=== PATIENT | male | born 1975 | race African-American/Black ===

== ENCOUNTER 2017-10-03 17:12 | Emergency (ER) | payer OTHER ==
[2017-10-03] MEDS ORDERED: NA CHLORIDE 0.9% 1,000 ML ONE (17:23)
[2017-10-03] MEDS ORDERED: NOREPINEPHRINE 4 MG in D5W 250 ML IV PRN (17:44)
[2017-10-03] MEDS ORDERED: NA CHLORIDE 0.9% 500 ML ONE (17:55)
[2017-10-03 18:12] LABS: Arterial Blood Carboxyhemoglob 9.3 % (0-1.5); Blood Gas Oxyhemoglobin 83.2 % (94-97); Blood O2 Saturation 92.3 % (92-98.5)
[2017-10-03 18:17] LABS: Absolute Lymphocytes (CBC) 0.9 K/uL (0.7-4.9); Absolute Monocytes 0.8 K/uL (0.1-1.3); Absolute Neutrophil 12.2 K/uL (1.8-8.0); Basophils % 0.5 % (0-1.3); Hematocrit 18.1 % (39.6-49.0); Lymphocytes % 6.6 % (15.3-44.8); MCV 89.7 fL (80-100); MPV 9.2 fL (7.6-11.3); RBC Red Blood Cell Count 2.01 M/uL (4.33-5.43)
[2017-10-03] MEDS ORDERED: VANCOMYCIN/NS 1 gm 1 GM/250 ML BAG ONE ×2 (18:22→20:10)
[2017-10-03 18:27] LABS: Protime INR 1.38
[2017-10-03] MEDS ORDERED: NA CHLORIDE 0.9% 250 ML ONE (18:32)
[2017-10-03 18:37] LABS: ALT/SGPT 6 IU/L (10-60); AST/SGOT 9 IU/L (10-42); Albumin 2.2 g/dL (3.2-5.5); Alkaline Phosphatase 56 IU/L (42-121); BUN Blood Urea Nitrogen 47 mg/dL (6-20); Bicarbonate 22 mEq/L (21-31); Bilirubin Direct 0.1 mg/dL (0-0.2); Bilirubin Total 0.6 mg/dL (0.3-1.2); Creatine Phosphokinase 122 IU/L (22-269); Glucose Level 114 mg/dL (65-120); Lipase 25 U/L (22-51); Potassium 4.1 mEq/L (3.6-5.0); Protein, Total 6.7 g/dL (6.0-8.3); Sodium Level 135 mEq/L (135-145)
[2017-10-03 18:39] LABS: Anisocytosis 1+; Blood Morphology Comment NOTED (NOT SEEN); Hypochromasia 2+; Platelet Estimate DECR; Urine White Blood Cell Casts OK
[2017-10-03 18:45] LABS: Alcohol Serum/Plasma < 10 mg/dl; Salicylates Level < 4.0 mg/dl (<30)
--- NOTE | 2017-10-03 18:55 | RAD REPORT ---
EXAM DESCRIPTION: Bernard Single View10/03/2017 5:58 pm CLINICAL HISTORY: Shortness of breath COMPARISON: none FINDINGS: The lungs appear clear of acute infiltrate. The heart is normal size. Small left pleural effusion is present IMPRESSION: No acute abnormalities displayed
--- NOTE | 2017-10-03 18:55 | RAD REPORT ---
EXAM DESCRIPTION: CT - Chest Abdomen Pelvis W Cont - 10/03/2017 6:32 pm CLINICAL HISTORY: Chest and abdominal pain status post fall COMPARISON: CT chest October 15, 2016 TECHNIQUE: Computed axial tomography of the chest, abdomen and pelvis was obtained. 100 cc Isovue-30 0 was administered intravenously. Oral contrast was not requested. This limits evaluation of bowel. All CT scans are performed using dose optimization technique as appropriate and may include automated exposure control or mA/KV adjustment according to patient size. FINDINGS: 5 x 2 centimeter fluid is loculated within the left oblique fissure. An additional very sm all loculated left pleural effusion is present. A pericardial effusion is not present. Mild ground-glass opacities are present within the right upper lobe. The remainder lungs are essentia lly clear. No mediastinal or hilar lymphadenopathy is noted. The liver adrenals and pancreas appear unremarkable. The kidneys are small containing cysts. The spleen measures 14 centimeters. There is no evidence of diverticulitis. An ulceration involves the anterior subcutaneous tissues of the right pelvis. The gallbladder is distended. It probably contains small stones. The wall does not appear thickened A left femoral line is in place. Calcified thrombus is suspected within the superior vena cava and br achiocephalic vein IMPRESSION: Small amount of fluid loculated within the left oblique fissure. An additional very smal l loculated left pleural effusion is seen. Cholelithiasis with gallbladder distention. Mild ground-glass opacities within the right upper lobe indicative of a mild alveolitis
--- NOTE | 2017-10-03 19:24 | EDPHYS ---
Physician Documentation [facility] Name: Shawn Devi Age: 41 yrs Sex: Male : 1975 Arrival Date: 10/03/2017 Time: 17:23 Bed 4 Private MD: ED Physician Prudencio Moreno HPI: 10/03 17:38 This 41 yrs old Black Male presents to ER via Unassigned with complaints of siena bleedingfrom right lower abdominal wound. 17:38 The patient presents with abdominal pain in the lower abdomen, right lower quadrant. siena Onset: The symptoms/episode began/occurred at an unknown time. dialysis, bleeding heavy from abdominal ound. The patient presents with confusion, decreased mental status. Onset: The symptoms/episode began/occurred this morning, today. Possible causes: unknown. Associated signs and symptoms: Pertinent positives: abdominal pain, confusion, dizziness, lightheadedness. Associated signs and symptoms: Pertinent positives: shortness of breath. Historical: - Allergies: 18:15 No Known Allergies; dm5 - Home Meds: 18:15 calcitriol 0.5 mcg Oral cap 1 cap once daily [Active]; calcium carbonate 500 mg calcium dm5 (1,250 mg) Oral tab 500 mg four times a day [Active]; Keppra 500 mg Oral tab 1 tab daily [Active]; Renvela 800 mg Oral tab 3 tab 3 times per day [Active]; - PMHx: 18:15 Dialysis; Renal Disease; dm5 - PSHx: 18:15 grafts; dm5 - Immunization history:: Adult Immunizations up to date. - Social history:: Smoking status: unknown. - Family history:: not pertinent. ROS: 17:38 Eyes: Negative for injury, pain, redness, and discharge, ENT: Negative for injury, siena pain, and discharge, Neck: Negative for injury, pain, and swelling. 17:38 Cardiovascular: Positive for palpitations. 17:38 Respiratory: Positive for cough, shortness of breath. 17:38 Abdomen/GI: Positive for abdominal pain, of the right lower quadrant, bleeding right lower quadrant, unk wound. Exam: 17:38 Constitutional: This is a well developed, well nourished patient who is awake, alert, siena and in no acute distress. Head/Face: Normocephalic, atraumatic. Eyes: Pupils equal round and reactive to light, extra-ocular motions intact. Lids and lashes normal. Conjunctiva and sclera are non-icteric and not injected. Cornea within normal limits. Periorbital areas with no swelling, redness, or edema. ENT: Nares patent. No nasal discharge, no septal abnormalities noted. Tympanic membranes are normal and external auditory canals are clear. Oropharynx with no redness, swelling, or masses, exudates, or evidence of obstruction, uvula midline. Mucous membranes moist. Neck: Trachea midline, no thyromegaly or masses palpated, and no cervical lymphadenopathy. Supple, full range of motion without nuchal rigidity, or vertebral point tenderness. No Meningismus. Chest/axilla: Normal chest wall appearance and motion. Nontender with no deformity. No lesions are appreciated. Cardiovascular: Regular rate and rhythm with a normal S1 and S2. No gallops, murmurs, or rubs. Normal PMI, no JVD. No pulse deficits. Abdomen/GI: Soft, non-tender, with normal bowel sounds. No distension or tympany. No guarding or rebound. No evidence of tenderness throughout. Back: No spinal tenderness. No costovertebral tenderness. Full range of motion. Skin: Warm, dry with normal turgor. Normal color with no rashes, no lesions, and no evidence of cellulitis. Psych: Awake, alert, with orientation to person, place and time. Behavior, mood, and affect are within normal limits. 17:38 Respiratory: the patient does not display signs of respiratory distress, Respirations: labored breathing, that is mild, Breath sounds: decreased breath sounds, Respiratory rate: 20 17:38 Abdomen/GI: Inspection: distension, Bowel sounds: normal, Palpation: moderate abdominal tenderness, in the right lower quadrant, Liver: no appreciated palpable abnormalities, Hernia: not appreciated. Vital Signs: 17:34 BP 107 / 79; Pulse 107; Resp 18; Pulse Ox 97% on R/A; aj1 18:00 BP 103 / 89; Pulse 96; Resp 15; Temp 98.2; Pulse Ox 97% on R/A; aj1 18:30 BP 117 / 82; Pulse 100; Resp 20; Pulse Ox 97% on R/A; aj1 19:00 BP 103 / 82; Pulse 100; Resp 20; Pulse Ox 97% on R/A; aj1 19:30 BP 80 / 68; Pulse 95; Resp 13; Pulse Ox 97% on R/A; aj1 19:35 BP 93 / 66; Pulse 94; Resp 13; Temp 97.0; Pulse Ox 96% on R/A; aj1 20:00 BP 107 / 82; Pulse 88; Resp 21; Pulse Ox 96% on R/A; aj1 20:16 BP 109 / 62; Pulse 91; Resp 17 S; Pulse Ox 92% on R/A; bb 20:31 BP 60 / 25; Pulse 88; Resp 22 S; Pulse Ox 99% on 4 lpm NC; bb 21:15 BP 72 / 42; Pulse 80; Resp 18 S; Pulse Ox 92% on 4 lpm NC; bb 21:30 BP 127 / 96; Pulse 69; Resp 20 S; Temp 97.4(TE); Pulse Ox 98% on 4 lpm NC; bb 21:30 by EMS monitor bb Procedures: 19:18 Peripheral line: by aseptic technique a peripheral line was placed in the left external siena jugular vein. MDM: 17:44 Data reviewed: vital signs, nurses notes, lab test result(s), EKG, radiologic studies, [facility] CT scan, plain films. 17:51 Patient medically screened. [facility] 10/03 17:34 Order name: Basic Metabolic Panel 10/03 17:34 Order name: Blood Culture Adult (2) 10/03 17:34 Order name: CBC with Diff; Complete Time: 19:14 10/03 17:34 Order name: CPK; Complete Time: 19:14 10/03 17:34 Order name: LFT's; Complete Time: 19:14 10/03 17:34 Order name: Lipase; Complete Time: 19:14 10/03 17:34 Order name: Procalcitonin; Complete Time: 19:14 10/03 17:34 Order name: Protime (+inr); Complete Time: 18:37 10/03 17:34 Order name: Basic Metabolic Panel; Complete Time: 19:14 EDMS 10/03 17:36 Order name: Bb Add On bd 10/03 17:36 Order name: Type And Screen [facility] 10/03 17:36 Order name: ABG; Complete Time: 19:14 siena 10/03 17:38 Order name: Acetaminophen; Complete Time: 19:14 [facility] 10/03 17:34 Order name: Chest Single View XRAY; Complete Time: 19:14 10/03 17:38 Order name: ETOH Level; Complete Time: 19:14 [facility] 10/03 17:38 Order name: Ptt, Activated; Complete Time: 18:37 [facility] 10/03 17:38 Order name: Salicylate; Complete Time: 19:14 [facility] 10/03 17:56 Order name: Glucose, Ancillary Testing; Complete Time: 18:08 [facility] 10/03 18:07 Order name: Chest Abdomen Pelvis W Con CT; Complete Time: 19:14 [facility] 10/03 18:10 Order name: Packed RBC Leukored -1 EDSC 10/03 18:31 Order name: CBC Smear Scan; Complete Time: 19:14 [facility] 10/03 18:54 Order name: ABO/RH no charge; Complete Time: 19:14 [facility] 10/03 17:34 Order name: Accucheck; Complete Time: 21:00 10/03 17:34 Order name: Cardiac monitoring; Complete Time: 21:00 10/03 17:34 Order name: EKG - Nurse/Tech; Complete Time: 21:01 10/03 17:34 Order name: IV Saline Lock - Large Bore; Complete Time: 21: 10/03 17:34 Order name: Labs collected and sent; Complete Time: 21: 10/03 17:34 Order name: O2 Per Protocol; Complete Time: 21: 10/03 17:34 Order name: O2 Sat Monitoring; Complete Time: 21:01 10/03 17:34 Order name: Transfuse; Complete Time: 21:00 10/03 17:38 Order name: EKG; Complete Time: 17:38 [facility] 10/03 17:38 Order name: IV Saline Lock; Complete Time: 19:05 [facility] 10/03 19:28 Order name: CONS Physician Consult [facility] 10/03 19:28 Order name: CONS Physician Consult EDSC Administered Medications: 17:30 Drug: NS 0.9% 1000 ml Route: IV; Rate: 1 bolus; Site: left femoral; aj1 19:30 Drug: Levophed (4 mg/250 mL D5W 4 mcg/min Route: IV; Rate: calculated rate; Site: left aj1 femoral; 21:38 Follow up: IV Status: Infusion continued upon transfer bb 20:14 Drug: fentaNYL (PF) 25 mcg Route: IVP; Site: Other; bb 21:36 Follow up: Response: Pain is decreased bb 20:14 Drug: Zofran 4 mg Route: IVP; Site: Other; bb 21:37 Follow up: Response: No adverse reaction bb 20:15 Drug: vancoMYCIN 1 grams Route: IVPB; Infused Over: 2 hrs; Site: Other; bb 21:37 Follow up: IV Status: Infusion continued upon transfer bb Point of Care Testing: Blood Glucose: 17:31 Blood Glucose: 132 mg/dL; rk2 Ranges: Critical Glucose Levels:Adult <50 mg/dl or >400 mg/dl <40 mg/dl or >180 mg/dl Disposition: 10/03/17 19:50 Transfer ordered to [facility]. Diagnosis are Hypotension, End stage renal disease, Anemia, unspecified - right lower quadrant wound bleeding, Pneumonia due to other specified bacteria. - Reason for transfer: Higher level of care. - Accepting physician is to [facility]. - Condition is Fair. - Problem is new. - Symptoms have improved. Signatures: Dispatcher [employer] EDSC Amaris Obrien, RN RN aj1 Montse Bruce RN RN dm5 Cesia James, RN Prudencio Fernandez MD MD cha Ballard, Brenda, RN RN Daniel Phipps MD MD gs Corrections: (The following items were deleted from the chart) 18:02 17:51 Chest Abdomen W/ Con+CT.RAD.BRZ ordered. [facility] EDSC 18:18 18:15 Immunization history: Adult Immunizations up to date, dm5 dm5 18:26 18:02 Chest Abdomen Pelvis W Cont ordered. [facility] EDSC 19:27 19:23 Hospitalization Ordered by Taylor Lopez MD for Inpatient Admission. Preliminary diagnosis is Anemia, unspecified - abdominal wound bleeding; Hypotension; End stage renal disease. Bed requested for Intensive Care Unit. Status is Inpatient Admission. Condition is Fair. Problem is new. Symptoms have improved. UTI on Admission? No. siena 19:48 19:27 10/03/2017 19:23 Hospitalization Ordered by Taylor Lopez MD for Inpatient siena Admission. Preliminary diagnosis is Anemia, unspecified - abdominal wound bleeding; Hypotension; End stage renal disease. Bed requested for Intensive Care Unit. Status is Inpatient Admission. Condition is Fair. Problem is new. Symptoms have improved. UTI on Admission? No. dw 22:04 19:50 10/03/2017 19:50 Transfer ordered to [facility]. bb Diagnosis is Hypotension; End stage renal disease; Anemia, unspecified - right lower quadrant wound bleeding; Pneumonia due to other specified bacteria. Reason for transfer: Higher level of care. Accepting physician is to [facility]. Condition is Fair. Problem is new. Symptoms have improved. siena
--- NOTE | 2017-10-03 19:24 | ER ---
Nurse's Notes [facility] Name: Shawn Devi Age: 41 yrs Sex: Male : 1975 Arrival Date: 10/03/2017 Time: 17:23 Bed 4 Private MD: Diagnosis: Hypotension;End stage renal disease;Anemia, unspecified-right lower quadrant wound bleeding;Pneumonia due to other specified bacteria Presentation: 10/03 17:12 Presenting complaint: EMS states: pt was watching TV and felt a warm sensation in his dm5 lap, he realized he was bleeding from a wound. Pt has a wound of unknown origin on LLQ. Pt also reports having wounds on legs. Pt is a dialysis patient. EMS unable to obtain blood pressure. Transition of care: patient was not received from another setting of care. Onset of symptoms was October 03, 2017 at 16:45. Initial Sepsis Screen: Does the patient meet any 2 criteria? Systolic BP < 90 mmHg. Altered Mental Status. Yes Does the patient have a suspected source of infection? Yes: Skin breakdown/wound. Care prior to arrival: None. 17:12 Method Of Arrival: EMS: [facility] 5 17:12 Acuity: REGINA 1 dm5 Triage Assessment: 17:12 General: Appears distressed, obese, unkempt, Behavior is drowsy. Pain: Complains of dm5 pain in right lower quadrant. Neuro: Level of Consciousness is lethargic, Oriented to person, place, time, Lockstitch Binder are weak bilaterally Weakness Speech is slurred. 17:12 Cardiovascular: Capillary refill is > 3 seconds Patient's skin is warm and dry. dm5 Respiratory: Airway is patent Respiratory effort is even, unlabored. Derm: Skin is dry, Skin is pale, Wound noted right lower quadrant. Historical: - Allergies: 18:15 No Known Allergies; dm5 - Home Meds: 18:15 calcitriol 0.5 mcg Oral cap 1 cap once daily [Active]; calcium carbonate 500 mg calcium dm5 (1,250 mg) Oral tab 500 mg four times a day [Active]; Keppra 500 mg Oral tab 1 tab daily [Active]; Renvela 800 mg Oral tab 3 tab 3 times per day [Active]; - PMHx: 18:15 Dialysis; Renal Disease; dm5 - PSHx: 18:15 grafts; dm5 - Immunization history:: Adult Immunizations up to date. - Social history:: Smoking status: unknown. - Family history:: not pertinent. Screenin:30 Abuse screen: Denies threats or abuse. Denies injuries from another. Nutritional aj1 screening: No deficits noted. Tuberculosis screening: No symptoms or risk factors identified. 21:55 Fall Risk None identified. bb Assessment: 17:30 Reassessment: Patient moved to trauma room 4. Report received from KARLA Grant. aj1 17:30 General: Appears uncomfortable, Behavior is drowsy, listless. Pain: Complains of pain aj1 in abdomen, right leg and left leg Pain does not radiate. Pain currently is 10 out of 10 on a pain scale. Quality of pain is described as sharp, Pain began suddenly, Is continuous. Neuro: Level of Consciousness is confused, listless, Oriented to person, place, time, situation, Weakness in bilateral arm(s) leg(s) Patient is unable to lift his arms to sign or legs due to weakness. Speech slow, soft. Facial symmetry appears normal, Pupils are PERRLA, Reports dizziness. Cardiovascular: Reports lightheadedness, palpitations, shortness of breath, Heart tones S1 S2 present Capillary refill < 3 seconds in bilateral fingers Pulses are palpable in right radial artery and left radial artery Rhythm is sinus tachycardia Chest pain is denied. Respiratory: Reports shortness of breath Airway is patent Respiratory effort is even, unlabored, Respiratory pattern is regular, symmetrical, Breath sounds are clear bilaterally. GI: Abdomen is round non-distended, Bowel sounds present X 4 quads. Abd is soft X 4 quads Abdomen is tender to palpation in right lower quadrant Patient currently denies diarrhea, nausea, vomiting. : No signs and/or symptoms were reported regarding the genitourinary system. EENT: No signs and/or symptoms were reported regarding the EENT system. Derm: Skin is pale, Wound noted right lower quadrant Wound is bleeding moderately. Pressure applied to wound. Patient states that he does not know how he got that wound, but he has been having it treated at the wound healing center. Blood noted on Sagar drsg located on the patient's left groin. Large drsg noted to patient's left leg. Patient states that he had a surgery to remove blood clots in his legs and that why that drsg is there. No blood noted to drsg on patient's left leg. Patient has 2 suture noted to the right groin, patient is unsure of when those were placed or why. Musculoskeletal: Capillary refill < 3 seconds. 17:45 Reassessment: Order received from Dr. Moreno to hold Levophed. aj1 17:50 Reassessment: Blood pressure readings vary widely from one cycle to the next. Patient's aj1 family states that they always have trouble getting an accurate blood pressure on him and the values always vary widely from one cycle to the next because of all the shunts he has in his body. Notified Dr. Moreno of difficulty getting consistent blood pressures and patient's history of difficult blood pressures. 18:00 Reassessment: 1st unit of blood started, by myself, and verified by KARLA Kessler. Order aj received to hold second unit until hemoglobin results come back. 18:05 Reassessment: Dr. Kimball at bedside to evaluate patient. aj1 18:10 Reassessment: wet to dry drsg placed on abdominal wound per orders from Dr. Kimball. aj1 18:15 Reassessment: Patient transported to CT accompanied by Milka Obrien RN. aj1 18:25 Reassessment: Vancomycin pulled to be administered when pt returned from CT. Dr. rolan Moreno ordered second unit of blood to be started when it gets to the ED. Vancomycin administration delayed due to blood administration and lack of vascular access. One unit of blood is infusing through Sagar catheter and the other will be started in EJ. 18:30 Reassessment: Patient appears in no apparent distress at this time. No changes from aj1 previously documented assessment. Patient and/or family updated on plan of care and expected duration. Pain level reassessed. Patient complains of continued pain in his legs. Patient remains drowsy and listless, patient opens his eyes to verbal stimuli, when patient is not being stimulated his eyes remain closed. Patient complains of being cold, multiple warm blankets placed on patient to keep him warm. Drsg to patient's abd remains dry and intact. 18:30 Cardiovascular: Patient's skin is warm and dry. Rhythm is sinus tachycardia. aj1 18:30 Respiratory: Airway is patent Respiratory effort is even, unlabored, Respiratory aj1 pattern is regular, symmetrical. 18:35 Reassessment: Patient's family at bedside, they are upset that patient has not received aj1 pain medication for the pain in his legs. Explained to patient and family that since he was so drowsy and we were having a hard time getting an accurate blood pressure it was not safe to give him pain medication. Family remains irritated at this, begin demanding pain medication. Notified Dr. Moreno of patient's family concerns, Dr Moreno to see patient. 18:40 Reassessment: Order received to start 2nd unit of blood, 2nd unit of blood started by aj1 myself and verified by Mel RN, ER nurse international project manager. 19:00 Reassessment: Patient continues to complain of feeling very cold, patient's temperature aj1 has dropped from 98.2 to 97.0 since arrival to ER. Kaylan hugger placed on patient to maintain body warmth, will continue to monitor patient's temperature. 19:25 Reassessment: Per Josh both units of blood infused through same site so that dm5 Levophed could be infused through Sagar Cath. 19:30 Reassessment: Order received to start Levophed and titrate to keep SBP above 90. aj1 19:30 Reassessment: Patient appears in no apparent distress at this time. No changes from aj1 previously documented assessment. Patient and/or family updated on plan of care and expected duration. Pain level reassessed. Patient remains drowsy, but is answering questions more completely. Patient complains of continued pain in his legs. Notified Dr. Moreno of patient complaint. Cardiovascular: Heart tones S1 S2 present Patient's skin is warm and dry. Rhythm is sinus tachycardia. Respiratory: Airway is patent Respiratory effort is even, unlabored, Respiratory pattern is regular, symmetrical. Derm: drsg to patient's abdomen remains dry and intact. 20:00 Reassessment: pt is lying on stretcher, listless, c/o pain to legs, IV to L EJ intact bb with blood infusing, Sagar catheter to L femoral accessed with Levophed runninng, wound to abdomen with dressing clean, dry, intact, no active bleeding noted, family at bedside, Dr Moreno notified pt c/o pain to bilateral lower legs new orders received pt medicated see AUG. 20:30 Reassessment: pt appears to be sleeping O2 sats decreased pt placed on NC at 4 Lpm O2 bb sats increased pt states he is feeling better. 20:40 Reassessment: report called to Amaris Allen RN at [facility] ICU MOT signed by bb grandmother. 21:00 Reassessment: pt resting quietly, IV sites intact, patent, blood products infusing, pt bb states he is feeling better, family at bedside. 21:15 Reassessment: [facility] at bedside for transfer of pt, pt A\T\O x 4, resp unlabored, IV bb sites intact, patent, blood products completed, pt transferred to trihealther with no difficulty, VS stable. Vital Signs: 17:34 BP 107 / 79; Pulse 107; Resp 18; Pulse Ox 97% on R/A; aj1 18:00 BP 103 / 89; Pulse 96; Resp 15; Temp 98.2; Pulse Ox 97% on R/A; aj1 18:30 BP 117 / 82; Pulse 100; Resp 20; Pulse Ox 97% on R/A; aj1 19:00 BP 103 / 82; Pulse 100; Resp 20; Pulse Ox 97% on R/A; aj1 19:30 BP 80 / 68; Pulse 95; Resp 13; Pulse Ox 97% on R/A; aj1 19:35 BP 93 / 66; Pulse 94; Resp 13; Temp 97.0; Pulse Ox 96% on R/A; aj1 20:00 BP 107 / 82; Pulse 88; Resp 21; Pulse Ox 96% on R/A; aj1 20:16 BP 109 / 62; Pulse 91; Resp 17 S; Pulse Ox 92% on R/A; bb 20:31 BP 60 / 25; Pulse 88; Resp 22 S; Pulse Ox 99% on 4 lpm NC; bb 21:15 BP 72 / 42; Pulse 80; Resp 18 S; Pulse Ox 92% on 4 lpm NC; bb 21:30 BP 127 / 96; Pulse 69; Resp 20 S; Temp 97.4(TE); Pulse Ox 98% on 4 lpm NC; bb 21:30 by EMS monitor lucy ED Course: 17:15 Missed attempt(s): 18 gauge in right hand. Bleeding controlled, band aid applied, dm5 catheter tip intact. 17:20 Accessed Sagar cath. Per Dr. Moreno dressing saturated with blood at this time. dm5 Good blood return. Flushes easily. initial labs drawn from this site. 17:23 Patient arrived in ED. dm5 17:30 No provider procedures requiring assistance completed. aj1 17:30 Report received from KARLA Grant. aj1 17:30 Patient has correct armband on for positive identification. Bed in low position. Call aj1 light in reach. Side rails up X 1. credit administration officer on. Pulse ox on. NIBP on. One-on-one care X 120 minutes. 17:35 Prudencio Moreno MD is Attending Physician. siena 17:54 Radiology exam delayed due to lab results not completed at this time. (BUN/Creatinine). sj 17:54 EKG done, by radio technician. reviewed by Prudencio Moreno MD. at1 17:55 X-ray completed. Portable x-ray completed in exam room. Patient tolerated procedure kc2 well. 17:56 Chest Single View XRAY In Process Unspecified. EDMS 18:13 Triage completed. dm5 18:19 Arm band placed on right wrist. Patient placed in an exam room, on a stretcher, on dm5 payroll administrative assistant, on pulse oximetry, Patient MD notified. 18:32 Chest Abdomen Pelvis W Con CT In Process Unspecified. EDIN 19:19 Taylor Lopez MD is Hospitalizing Provider. [facility] 19:57 Amaris Obrien RN is Primary Nurse. aj1 20:00 Report given to KARLA Marino. aj1 21:55 Patient transferred, IV remains in place. bb Administered Medications: 17:30 Drug: NS 0.9% 1000 ml Route: IV; Rate: 1 bolus; Site: left femoral; aj1 19:30 Drug: Levophed (4 mg/250 mL D5W 4 mcg/min Route: IV; Rate: calculated rate; Site: left aj1 femoral; 21:38 Follow up: IV Status: Infusion continued upon transfer bb 20:14 Drug: fentaNYL (PF) 25 mcg Route: IVP; Site: Other; bb 21:36 Follow up: Response: Pain is decreased bb 20:14 Drug: Zofran 4 mg Route: IVP; Site: Other; bb 21:37 Follow up: Response: No adverse reaction bb 20:15 Drug: vancoMYCIN 1 grams Route: IVPB; Infused Over: 2 hrs; Site: Other; bb 21:37 Follow up: IV Status: Infusion continued upon transfer bb Point of Care Testing: Blood Glucose: 17:31 Blood Glucose: 132 mg/dL; rk2 Ranges: Outcome: 19:23 Decision to Hospitalize by Provider. siena 19:30 Instructed on the need for transfer. bb 19:50 ER care complete, transfer ordered by . siena 21:25 Transferred by ground EMS to [facility], Transfer form completed. X-rays sent bb w/ patient. 21:55 Condition: improved bb 22:04 Patient left the ED. bb Addendum: 10/09/2017 08:59 Addendum: Culture Results: Positive urine culture. Phone call Attempt #1 transferring s s facility notified. ATTN 3 Dany fax number [phone]. Signatures: Dispatcher [employer] EDMS Amaris Obrien RN RN aj1 Montse Bruce, RN RN Prudencio Catalan MD MD cha Jones, Jamila Godoy RN RN bb Smirch, Shelby, RN RN ss Donna talavera, conveyor belt operator EKG Tat1 Mimi Bartlett kc2 Juanita Ornelas, RN RN rk2 Corrections: (The following items were deleted from the chart) 10/03 18:18 18:15 Immunization history: Adult Immunizations up to date, dm5 dm5 20:16 20:15 Report received from KARLA Grant aj1 aj1 20:55 19:30 Reassessment: Order received to start Levophed and titrate to keep SBP above 90 aj1 aj1 20:56 18:30 Reassessment: Patient appears in no apparent distress at this time. No changes aj1 from previously documented assessment. Patient and/or family updated on plan of care and expected duration. Pain level reassessed. Patient is alert, oriented x 3, equal unlabored respirations, skin warm/dry/pink. Patient complains of continued pain in his legs. Patient remains drowsy and listless, patient opens his eyes to verbal stimuli, when patient is not being stimulated his eyes remain closed. Patient complains of being cold, multiple warm blankets placed on patient to keep him warm aj1 20:57 18:30 Reassessment: Patient appears in no apparent distress at this time. No changes aj1 from previously documented assessment. Patient and/or family updated on plan of care and expected duration. Pain level reassessed. Patient is alert, oriented x 3, equal unlabored respirations, skin warm/dry/pink. Patient complains of continued pain in his legs. Patient remains drowsy and listless, patient opens his eyes to verbal stimuli, when patient is not being stimulated his eyes remain closed. Patient complains of being cold, multiple warm blankets placed on patient to keep him warm. Drsg to patient's abd remains dry and intact aj1 10/04 10:47 10/03 17:30 Neuro: Level of Consciousness is confused, listless, Oriented to person, aj1 place, time, situation, Full function in bilateral arm(s) leg(s) Patient is unable to lift his arms to sign or legs due to weakness. Speech slow, soft. Facial symmetry appears normal, Pupils are PERRLA, Reports dizziness, aj1
[2017-10-03] MEDS ORDERED: ONDANSETRON 4 MG/2 ML VIAL ONE (19:56)
[2017-10-03] MEDS ORDERED: FENTANYL CITR 100 MCG/2 ML ONE (19:56)
[2017-10-03 22:24] VITALS: BP 127/96; TEMP 97.4; O2SAT 98
--- NOTE | 2017-10-04 14:39 | EKG ---
Test Date: 2017-10-03 Test Time: 17:45:03 Logging Worker: LEONILA MEASUREMENT RESULTS: Intervals: Rate: 97 WA: 120 QRSD: 78 QT: 398 QTc: 505 [place]: P: 69 WA: 120 QRS: 41 T: 36 INTERPRETIVE STATEMENTS: Normal sinus rhythm Nonspecific T wave abnormality Prolonged QT Abnormal ECG Compared to ECG 08/24/2016 08:58:26 T-wave abnormality now present Prolonged QT interval now present Sinus tachycardia no longer present Electronically Signed On 10-04-17 14:34:34 CDT by Zen Veras
== END 2017-10-03 22:04 | disposition short-term general hospital (02) ==
LOC: ER 17:12 → UNDOADMIN 19:24 → ERHOLD 19:24
PROC: 05HQ33Z Insertion of Infusion Device into Left External Jugular Vein, Percutaneous Approach (ICD-10-PCS; principal; 2017-10-03)
PROC: 30233N1 Transfusion of Nonautologous Red Blood Cells into Peripheral Vein, Percutaneous Approach (ICD-10-PCS; 2017-10-03)
DX: D64.9 Anemia, unspecified (principal); I95.9 Hypotension, unspecified; J15.8 Pneumonia due to other specified bacteria; S31.103A Unspecified open wound of abdominal wall, right lower quadrant without penetration into peritoneal cavity, initial encounter; N18.6 End stage renal disease; Z99.2 Dependence on renal dialysis
CPT/HCPCS: 36415; 71045; 71260; 74177; 80048; 80076; 80320; 80329; 82550; 82805; 82962; 83690; 84145; 85025; 85610; 85730; 86850; 86900; 86901; 87040; 87077; 87186; 87205; 93005; 99291; 99292; J2405; J3010; J3370; J7030; J7060; P9016; Q9967

== ENCOUNTER 2018-07-29 12:04 | Emergency (ER) | payer OTHER ==
[2018-07-29] MEDS ORDERED: CEFEPIME/SWI 2gm 2 GM/20 ML SYR IV ONE (13:00)
[2018-07-29 13:03] LABS: Absolute Lymphocytes (CBC) 0.6 K/uL (0.7-4.9); Absolute Monocytes 0.7 K/uL (0.1-1.3); Absolute Neutrophil 11.6 K/uL (1.8-8.0); Basophils % 0.5 % (0-1.3); Eosinophils % 1.3 % (0-4.4); Lymphocytes % 4.6 % (15.3-44.8); MPV 7.9 fL (7.6-11.3); Monocytes % 5.4 % (3.3-12.3); RBC Red Blood Cell Count 2.99 M/uL (4.33-5.43)
[2018-07-29] MEDS ORDERED: NA CHLORIDE 0.9% 1,000 ML ONE (13:04)
[2018-07-29 13:05] LABS: Protime INR 1.53
[2018-07-29] MEDS ORDERED: VANCOMYCIN/NS 1 gm 1 GM/250 ML BAG IVPB ONE (13:15)
--- NOTE | 2018-07-29 13:42 | EDPHYS ---
Physician Documentation [facility] Name: Shawn Devi Age: 42 yrs Sex: Male : 1975 Arrival Date: 07/29/2018 Time: 12:10 Bed 4 Private MD: ED Physician Prudencio Moreno HPI: 07/29 12:44 This 42 yrs old Black Male presents to ER via EMS with complaints of Leg Pain. siena 12:44 The patient presents with decreased range of motion, a deformity, an injury, pain. The siena complaints affect the medial aspect of left thigh, medial aspect of left knee, medial aspect of left calf, left quadriceps, left knee and left brown. Context: The problem was sustained. Onset: The symptoms/episode began/occurred 2 day(s) ago. Modifying factors: The symptoms are alleviated by nothing. the symptoms are aggravated by nothing. Associated signs and symptoms: Pertinent positives: swelling, warmth, weakness. Historical: - Allergies: 12:17 No Known Allergies; ch - Home Meds: 12:17 calcitriol 0.5 mcg Oral cap 1 cap once daily [Active]; calcium carbonate 500 mg calcium ch (1,250 mg) Oral tab 500 mg four times a day [Active]; Keppra 500 mg Oral tab 1 tab daily [Active]; Renvela 800 mg Oral tab 3 tab 3 times per day [Active]; - PMHx: 12:17 Dialysis; Renal Disease; Hypertension; mulptiple wounds; ch 13:17 DVT- with sx to remove; ch - PSHx: 12:17 grafts; mark in groin for dialysis; daily arm fistulas; kidney transplant failed; skin ch grafts/chronic infection; - Immunization history:: Adult Immunizations unknown. - Social history:: Smoking status: Patient/guardian denies using tobacco, Patient/guardian denies using alcohol, street drugs. - Ebola Screening: : Patient negative for fever greater than or equal to 101.5 degrees Fahrenheit, and additional compatible Ebola Virus Disease symptoms Patient denies exposure to infectious person Patient denies travel to an Ebola-affected area in the 21 days before illness onset No symptoms or risks identified at this time. ROS: 12:45 Eyes: Negative for injury, pain, redness, and discharge, ENT: Negative for injury, siena pain, and discharge, Neck: Negative for injury, pain, and swelling, Abdomen/GI: Negative for abdominal pain, nausea, vomiting, diarrhea, and constipation, Back: Negative for injury and pain, : Negative for injury, bleeding, discharge, and swelling, Psych: Negative for depression, anxiety, suicide ideation, homicidal ideation, and hallucinations, Allergy/Immunology: Negative for hives, rash, and allergies, Endocrine: Negative for neck swelling, polydipsia, polyuria, polyphagia, and marked weight changes, Hematologic/Lymphatic: Negative for swollen nodes, abnormal bleeding, and unusual bruising. 12:45 Constitutional: Positive for fever. 12:45 Cardiovascular: Positive for palpitations. 12:45 Respiratory: Positive for cough, shortness of breath. 12:45 MS/extremity: Positive for decreased range of motion, pain, swelling, tenderness, warmth, of the right leg. Exam: 12:45 Head/Face: Normocephalic, atraumatic. Eyes: Pupils equal round and reactive to light, siena extra-ocular motions intact. Lids and lashes normal. Conjunctiva and sclera are non-icteric and not injected. Cornea within normal limits. Periorbital areas with no swelling, redness, or edema. ENT: Nares patent. No nasal discharge, no septal abnormalities noted. Tympanic membranes are normal and external auditory canals are clear. Oropharynx with no redness, swelling, or masses, exudates, or evidence of obstruction, uvula midline. Mucous membranes moist. Neck: Trachea midline, no thyromegaly or masses palpated, and no cervical lymphadenopathy. Supple, full range of motion without nuchal rigidity, or vertebral point tenderness. No Meningismus. Chest/axilla: Normal chest wall appearance and motion. Nontender with no deformity. No lesions are appreciated. Cardiovascular: Regular rate and rhythm with a normal S1 and S2. No gallops, murmurs, or rubs. Normal PMI, no JVD. No pulse deficits. Respiratory: Lungs have equal breath sounds bilaterally, clear to auscultation and percussion. No rales, rhonchi or wheezes noted. No increased work of breathing, no retractions or nasal flaring. Abdomen/GI: Soft, non-tender, with normal bowel sounds. No distension or tympany. No guarding or rebound. No evidence of tenderness throughout. Male : Normal genitalia with no discharge or lesions. Skin: Warm, dry with normal turgor. Normal color with no rashes, no lesions, and no evidence of cellulitis. 12:45 Constitutional: The patient appears in obvious distress, mildly distressed, moderately distressed. 12:45 Musculoskeletal/extremity: Extremities: decreased ROM, deformity, erythema, pain, swelling, tenderness, ROM: limited active range of motion, limited passive range of motion, Circulation is intact in all extremities. Compartment Syndrome exam of affected extremity: is normal. Weight bearing: is unable to bear weight. Vital Signs: 13:11 Pulse 88; Resp 19; Temp 97.7; Pulse Ox 95% on R/A; Weight 81.65 kg; aj1 13:13 ch 14:00 BP 77 / 34; Pulse 82; Resp 14; Pulse Ox 99% on R/A; Pain 8/10; ch 14:30 BP 76 / 58; Pulse 86; Resp 12; Temp 98.6; Pulse Ox 95% on R/A; Pain 0/10; ch 15:08 BP 66 / 35; Pulse 84; Resp 14; Temp 98.2; Pulse Ox 96% on R/A; Pain 6/10; ch 15:29 BP 97 / 46; Pulse 107; Resp 11; Pulse Ox 96% on R/A; ch 15:37 BP 93 / 70; Pulse 104; Resp 18; Temp 97.8; Pulse Ox 99% on R/A; Pain 0/10; ch 15:48 BP 94 / 79; Pulse 107; Resp 14; Pulse Ox 98% on R/A; Pain 0/10; ch 16:00 BP 92 / 68; Pulse 106; Resp 19; Temp 98.1; Pulse Ox 98% on R/A; Pain 6/10; ch 13:13 unable to get accurat bp on pt due to having to use R calf only. pt has strong pedal ch pulses 15:37 pt is alseepa tthis time, reponds to verbal stimuli. pt levophed is running at 5mcg per ch min, or 18.8mL per hour. pt bp holding at 90's over 60-70s. Procedures: 12:49 Peripheral line: by aseptic technique a peripheral line was placed in the right [facility] external jugular vein. MDM: 12:32 Patient medically screened. [facility] 12:48 Data reviewed: vital signs, nurses notes, lab test result(s), EKG, radiologic studies, [facility] plain films. 07/29 12:44 Order name: Basic Metabolic Panel [facility] 07/29 12:44 Order name: CBC with Diff; Complete Time: 14:18 [facility] 07/29 12:44 Order name: PT-INR; Complete Time: 13:35 [facility] 07/29 12:44 Order name: Blood Culture Adult (2) [facility] 07/29 12:44 Order name: Procalcitonin [facility] 07/29 12:44 Order name: Lactate; Complete Time: 13:35 [facility] 07/29 13:14 Order name: CBC Smear Scan; Complete Time: 14:18 [facility] 07/29 12:44 Order name: XRAY Chest (1 view); Complete Time: 14:18 [facility] 07/29 13:37 Order name: Basic Metabolic Panel; Complete Time: 14:46 [facility] 07/29 13:37 Order name: Liver (Hepatic) Function; Complete Time: 14:46 [facility] 07/29 13:37 Order name: Troponin (Emerg Dept Use Only); Complete Time: 14:46 [facility] 07/29 13:37 Order name: NT PRO-BNP; Complete Time: 14:46 [facility] 07/29 13:37 Order name: Magnesium; Complete Time: 14:46 [facility] 07/29 13:37 Order name: Lipase; Complete Time: 14:46 [facility] 07/29 12:44 Order name: EKG; Complete Time: 12:45 [facility] 07/29 12:44 Order name: Cardiac monitoring; Complete Time: 13:10 [facility] 07/29 12:44 Order name: EKG - Nurse/Tech; Complete Time: 12:56 [facility] 07/29 12:44 Order name: IV Saline Lock; Complete Time: 13:10 [facility] 07/29 12:44 Order name: Labs collected and sent; Complete Time: 13:10 [facility] 07/29 12:44 Order name: O2 Per Protocol; Complete Time: 13:10 [facility] 07/29 12:44 Order name: O2 Sat Monitoring; Complete Time: 13:10 [facility] Administered Medications: 13:08 Drug: NS 0.9% 250 ml Route: IV; Rate: bolus; Site: Other; aj1 14:00 Follow up: IV Status: Completed infusion; IV Intake: 250ml 13:09 Drug: NS 0.9% 1000 ml Route: IV; Rate: 75 ml/hr; Site: Other; aj1 16:12 Follow up: IV Status: Infusion continued upon transfer; IV Intake: 150ml ch 13:25 Drug: Cefepime 2 grams {Note: Given SIVP in 10mL per pharmacy protocol.} Route: IVPB; aj1 Rate: 200 ml/hr; Infused Over: 30 mins; Site: Other; 13:35 Follow up: IV Status: Completed infusion; IV Intake: 10ml aj1 13:34 Drug: vancoMYCIN 1 grams Route: IVPB; Infused Over: 2 hrs; Site: Other; aj1 16:13 Follow up: IV Status: Infusion continued upon transfer; Infusion continued upon transfer, pt vancomycin has been running in at 75 mL per hour due to concern for fluid overload; IV Intake: 200ml 14:22 Drug: Albuterol - atroVENT (3:1) (2.5 mg - 0.5 mg) 3 ml Route: Nebulizer; ch 16:11 Follow up: Response: No adverse reaction ch 14:23 Drug: D50W 50 ml Route: IVP; Site: right jugular; ch 15:40 Follow up: Response: No adverse reaction; Marked relief of symptoms ch 14:33 Drug: Insulin Regular Human 10 units {Co-Signature: aj1 (Amaris Obrien RN).} Route: ch IVP; Site: right jugular; 15:40 Follow up: Response: No adverse reaction ch 14:38 Drug: Sodium Bicarbonate 1 amp Route: IVP; Site: right jugular; ch 16:10 Follow up: Response: No adverse reaction ch 14:40 Drug: Calcium Gluconate 1 grams Route: IVPB; Infused Over: 20 mins; Site: right jugular;ch 15:39 Follow up: IV Status: Completed infusion; IV Intake: 100ml ch 15:20 Drug: Levophed (4 mg/250 mL D5W 4 mcg/min {Note: mix of medications witnessed by Joann Schumacher} Route: IV; Rate: calculated rate; Site: left femoral; 15:29 Follow up: BP 97 / 46; Pulse 107 bpm; Resp 11 bpm; Pulse Ox 96% RA ch 16:10 Follow up: IV Status: Infusion continued upon transfer; IV Intake: 18ml ch 15:30 Drug: Calcium Gluconate 1 grams Route: IVPB; Infused Over: 20 mins; Site: right jugular;ch 16:11 Follow up: IV Status: Completed infusion; IV Intake: 100ml 15:30 Drug: Kayexalate 60 grams Route: PO; 16:11 Follow up: Response: No adverse reaction Disposition: 07/29/18 13:41 Transfer ordered to Other Acute Care Facility. Diagnosis are Weakness, End stage renal disease, Anemia, unspecified, Cellulitis and acute lymphangitis of other parts of limb - wound, Hypotension, Hyperkalemia. - Reason for transfer: Higher level of care. - Accepting physician is to [facility] , icu. - Condition is Fair. - Problem is new. - Symptoms have improved. Signatures: Dispatcher [employer] EDMS Sena Knox RN RN ch Johnson, Angela, RN RN aj1 Prudencio Moreno MD MD cha Angela Johnson RN aj1 Corrections: (The following items were deleted from the chart) 13:36 12:44 Basic Metabolic Panel ordered. EDNC EDMS 13:36 12:45 HEPATIC FUNCTION+C.LAB.BRZ ordered. EDNC EDMS 13:36 12:45 MAGNESIUM+C.LAB.BRZ ordered. EDNC EDMS 13:36 12:45 PROBNP+C.LAB.BRZ ordered. EDNC EDMS 13:36 12:45 TROPONIN (EMERG DEPT USE ONLY)+C.LAB.BRZ ordered. EDNC EDMS 13:36 12:45 LIPASE+C.LAB.BRZ ordered. EDNC EDMS 13:41 13:41 07/29/2018 13:41 Transfer ordered to Other Acute Care Facility. Diagnosis is siena Weakness; End stage renal disease; Anemia, unspecified; Cellulitis and acute lymphangitis of other parts of limb - wound; Hypotension. Reason for transfer: Higher level of care. Accepting physician is to [facility] , icu. Condition is Stable. Problem is new. Symptoms have improved. [facility] 14:50 13:41 07/29/2018 13:41 Transfer ordered to Other Acute Care Facility. Diagnosis is siena Weakness; End stage renal disease; Anemia, unspecified; Cellulitis and acute lymphangitis of other parts of limb - wound; Hypotension. Reason for transfer: Higher level of care. Accepting physician is to [facility] , icu. Condition is Fair. Problem is new. Symptoms have improved. [facility] 16:14 12:44 Urine Dipstick-Ancillary ordered. [facility] 16:14 14:50 07/29/2018 13:41 Transfer ordered to Other Acute Care Facility. Diagnosis is ch Weakness; End stage renal disease; Anemia, unspecified; Cellulitis and acute lymphangitis of other parts of limb - wound; Hypotension; Hyperkalemia. Reason for transfer: Higher level of care. Accepting physician is to [facility] , icu. Condition is Fair. Problem is new. Symptoms have improved. siena
--- NOTE | 2018-07-29 13:42 | ER ---
Nurse's Notes [facility] Name: Shawn Devi Age: 42 yrs Sex: Male : 1975 Arrival Date: 07/29/2018 Time: 12:10 Bed 4 Private MD: Diagnosis: Weakness;End stage renal disease;Anemia, unspecified;Cellulitis and acute lymphangitis of other parts of limb-wound;Hypotension;Hyperkalemia Presentation: 07/29 12:11 Presenting complaint: Patient states: pain to L leg, failed skin graft, fell last week, ch missed dialysis x2, missed dialysis today due to pain. pt has been drowsy since missing dialysis. pt last ate 0900 yesterday. pt supposed ot have sx on L leg for skin graft that is chronically infected on Tuesday, but only if he had dialysis. Transition of care: patient was not received from another setting of care. Onset of symptoms was July 2017. Risk Assessment: Do you want to hurt yourself or someone else? Patient reports no desire to harm self or others. Care prior to arrival: None. 12:11 Method Of Arrival: [facility] 12:11 Acuity: REGINA 2 12:30 Initial Sepsis Screen: Does the patient meet any 2 criteria? No. Patient's initial sepsis screen is negative. Does the patient have a suspected source of infection? Yes: Skin breakdown/wound. Triage Assessment: 12:17 General: Appears in no apparent distress. uncomfortable, Behavior is cooperative, ch appropriate for age, anxious, fussy, restless. Pain: Complains of pain in left leg Pain currently is 10 out of 10 on a pain scale. Neuro: Level of Consciousness is awake, obeys commands, lethargic, listless, Oriented to person, place, time, Migration Agent are equal bilaterally weak bilaterally Weakness in bilateral arm(s) leg(s) Speech is slurred, Facial symmetry appears normal, Facial symmetry: tongue is midline, Pupils are PERRLA, sluggish. Respiratory: Airway is patent Respiratory effort is even, unlabored. Derm:. Historical: - Allergies: 12:17 No Known Allergies; ch - Home Meds: 12:17 calcitriol 0.5 mcg Oral cap 1 cap once daily [Active]; calcium carbonate 500 mg calcium ch (1,250 mg) Oral tab 500 mg four times a day [Active]; Keppra 500 mg Oral tab 1 tab daily [Active]; Renvela 800 mg Oral tab 3 tab 3 times per day [Active]; - PMHx: 12:17 Dialysis; Renal Disease; Hypertension; mulptiple wounds; ch 13:17 DVT- with sx to remove; ch - PSHx: 12:17 grafts; mark in groin for dialysis; daliy arm fistulas; kidney transplant failed; skin ch grafts/chronic infection; - Immunization history:: Adult Immunizations unknown. - Social history:: Smoking status: Patient/guardian denies using tobacco, Patient/guardian denies using alcohol, street drugs. - Ebola Screening: : Patient negative for fever greater than or equal to 101.5 degrees Fahrenheit, and additional compatible Ebola Virus Disease symptoms Patient denies exposure to infectious person Patient denies travel to an Ebola-affected area in the 21 days before illness onset No symptoms or risks identified at this time. Screenin:40 Abuse screen: Denies threats or abuse. Denies injuries from another. Nutritional ch screening: No deficits noted. Tuberculosis screening: No symptoms or risk factors identified. Fall Risk Fall in past 12 months (25 points). Secondary diagnosis (15 points) IV access (20 points). Ambulatory Aid- None/Bed Rest/Nurse Assist (0 pts). Gait- Weak (10 pts.). Mental Status- Oriented to own ability (0 pts). Total Ordonez Fall Scale indicates High Risk Score (45 or more points). Fall prevention measures have been instituted. Side Rails Up X 2 Placed Close to Nursing Station Frequent Obs/Assessments Occuring Family Present and informed to notify staff if the need to leave the bedside As available patient and family educated on Fall Prevention Program and Strategies. Assessment: 13:14 General: Appears in no apparent distress. comfortable, Behavior is cooperative, ch appropriate for age, drowsy. Pain: Denies pain. Complains of pain in left leg Pain currently is 8 out of 10 on a pain scale. Respiratory: Airway is patent Respiratory effort is even, unlabored, Breath sounds are diminished. GI: Abdomen is flat, non-distended, Bowel sounds present X 4 quads. Abd is soft and non tender X 4 quads. Derm: Skin is pink, warm \T\ dry. Wound noted medial aspect of left knee and medial aspect of left calf Wound is pt has deep, macerated wound purulent with foul smell. wound is dressed and covered. Musculoskeletal: Range of motion: limited in left hip, left knee and left ankle. 14:00 Reassessment: Patient appears in no apparent distress at this time. No changes from previously documented assessment. 14:30 Reassessment: Patient appears in no apparent distress at this time. No changes from previously documented assessment. family at bedside, pt Critical Lab Returns from Lab Recolloct. Pt Medicated per Orders. 15:00 Reassessment: Patient appears in no apparent distress at this time. pt is still Lethargic, Oriented X3. ERP still Working on Transfer to [facility]. 15:33 Reassessment: Patient appears in no apparent distress at this time. pt cO pain then ch Falls ASleep pt not medicated due to RR and Lethargy. 16:06 Reassessment: Patient appears in no apparent distress at this time. No changes from previously documented assessment. Patient and/or family updated on plan of care and expected duration. Pain level reassessed. report given at Beside to EMS, pt bp holding well on 5 mcg/min of levophed. [facility] notified pt is in route. medications trasnferred with pt. Vital Signs: 13:11 Pulse 88; Resp 19; Temp 97.7; Pulse Ox 95% on R/A; Weight 81.65 kg; aj1 13:13 ch 14:00 BP 77 / 34; Pulse 82; Resp 14; Pulse Ox 99% on R/A; Pain 8/10; ch 14:30 BP 76 / 58; Pulse 86; Resp 12; Temp 98.6; Pulse Ox 95% on R/A; Pain 0/10; ch 15:08 BP 66 / 35; Pulse 84; Resp 14; Temp 98.2; Pulse Ox 96% on R/A; Pain 6/10; ch 15:29 BP 97 / 46; Pulse 107; Resp 11; Pulse Ox 96% on R/A; ch 15:37 BP 93 / 70; Pulse 104; Resp 18; Temp 97.8; Pulse Ox 99% on R/A; Pain 0/10; ch 15:48 BP 94 / 79; Pulse 107; Resp 14; Pulse Ox 98% on R/A; Pain 0/10; ch 16:00 BP 92 / 68; Pulse 106; Resp 19; Temp 98.1; Pulse Ox 98% on R/A; Pain 6/10; ch 13:13 unable to get accurat bp on pt due to having to use R calf only. pt has strong pedal ch pulses 15:37 pt is alseepa tthis time, reponds to verbal stimuli. pt levophed is running at 5mcg per ch min, or 18.8mL per hour. pt bp holding at 90's over 60-70s. Vitals: 13:13 Cardiac Rhythm Assessment Regular Other pt has peaked T waves. ED Course: 12:10 Patient arrived in ED. 12:14 Triage completed. 12:17 Arm band placed on left wrist. Patient placed in an exam room, on a stretcher, on pulse oximetry. 12:20 Patient has correct armband on for positive identification. Bed in low position. Call light in reach. Side rails up X2. Adult w/ patient. 12:20 member service representative on. Pulse ox on. NIBP on. Warm blanket given. Pillow given. ch 12:20 No provider procedures requiring assistance completed. 12:32 Prudencio Moreno MD is Attending Physician. [facility] 12:56 EKG done, by ED staff, reviewed by Prudencio Moreno MD. em1 13:12 Sena Knox, RN is Primary Nurse. 13:24 X-ray completed. Portable x-ray completed in exam room. sg4 13:25 XRAY Chest (1 view) In Process Unspecified. EDMS 13:30 No apparent distress. 13:30 Inserted saline lock: 18 gauge in right EJ, using aseptic technique. Blood collected. Started By Butch Moreno. Patient maintains SpO2 saturation greater than 95% on room air. 13:45 Initiated transfer with Luis spoke with daniel. ms 14:40 Notified ED physician of a critical lab result(s). K 8.2, Ca 6.6, creatinine 14.2. hb 16:00 Patient transferred, IV remains in place. Administered Medications: 13:08 Drug: NS 0.9% 250 ml Route: IV; Rate: bolus; Site: Other; aj1 14:00 Follow up: IV Status: Completed infusion; IV Intake: 250ml 13:09 Drug: NS 0.9% 1000 ml Route: IV; Rate: 75 ml/hr; Site: Other; aj1 16:12 Follow up: IV Status: Infusion continued upon transfer; IV Intake: 150ml ch 13:25 Drug: Cefepime 2 grams {Note: Given SIVP in 10mL per pharmacy protocol.} Route: IVPB; aj1 Rate: 200 ml/hr; Infused Over: 30 mins; Site: Other; 13:35 Follow up: IV Status: Completed infusion; IV Intake: 10ml aj1 13:34 Drug: vancoMYCIN 1 grams Route: IVPB; Infused Over: 2 hrs; Site: Other; aj1 16:13 Follow up: IV Status: Infusion continued upon transfer; Infusion continued upon transfer, pt vancomycin has been running in at 75 mL per hour due to concern for fluid overload; IV Intake: 200ml 14:22 Drug: Albuterol - atroVENT (3:1) (2.5 mg - 0.5 mg) 3 ml Route: Nebulizer; ch 16:11 Follow up: Response: No adverse reaction ch 14:23 Drug: D50W 50 ml Route: IVP; Site: right jugular; ch 15:40 Follow up: Response: No adverse reaction; Marked relief of symptoms ch 14:33 Drug: Insulin Regular Human 10 units {Co-Signature: aj1 (Amaris Obrien RN).} Route: ch IVP; Site: right jugular; 15:40 Follow up: Response: No adverse reaction ch 14:38 Drug: Sodium Bicarbonate 1 amp Route: IVP; Site: right jugular; ch 16:10 Follow up: Response: No adverse reaction ch 14:40 Drug: Calcium Gluconate 1 grams Route: IVPB; Infused Over: 20 mins; Site: right jugular;ch 15:39 Follow up: IV Status: Completed infusion; IV Intake: 100ml ch 15:20 Drug: Levophed (4 mg/250 mL D5W 4 mcg/min {Note: mix of medications witnessed by Joann Schumacher} Route: IV; Rate: calculated rate; Site: left femoral; 15:29 Follow up: BP 97 / 46; Pulse 107 bpm; Resp 11 bpm; Pulse Ox 96% RA ch 16:10 Follow up: IV Status: Infusion continued upon transfer; IV Intake: 18ml ch 15:30 Drug: Calcium Gluconate 1 grams Route: IVPB; Infused Over: 20 mins; Site: right jugular;ch 16:11 Follow up: IV Status: Completed infusion; IV Intake: 100ml ch 15:30 Drug: Kayexalate 60 grams Route: PO; ch 16:11 Follow up: Response: No adverse reaction ch Intake: 13:35 IV: 10ml; Total: 10ml. aj1 14:00 IV: 250ml; Total: 260ml. ch 15:39 IV: 100ml; Total: 360ml. ch 16:10 IV: 18ml; Total: 378ml. ch 16:11 IV: 100ml; Total: 478ml. ch 16:12 IV: 150ml; Total: 628ml. ch 16:13 IV: 200ml; Total: 828ml. Outcome: 13:41 ER care complete, transfer ordered by . [facility] 16:00 Transferred by ground EMS [facility] to [facility], Transfer form completed. X-rays sent w/ patient. 16:00 critical 16:00 Instructed on the need for transfer. 16:14 Patient left the ED. Signatures: Dispatcher [employer] Sena Thompson, RN Amaris Moe ch, RN RN aj1 Prudencio Moreno MD MD cha Solis, Flako Hinkle ms em1 Tori Guzmán, RN Brittney Quinteros 4 Amaris Obrien RN aj1
[2018-07-29 13:56] LABS: Platelet Estimate ADEQ; Urine White Blood Cell Casts OK
[2018-07-29 13:57] LABS: Anisocytosis 1+; Blood Morphology Comment NOTED (NOT SEEN); Platelets, Giant PRESENT
--- NOTE | 2018-07-29 13:59 | RAD REPORT ---
EXAM DESCRIPTION: RAD - Chest Single View - 07/29/2018 1:26 pm CLINICAL HISTORY: Cough COMPARISON: September 2017 TECHNIQUE: AP portable chest image was obtained 1324 hours . FINDINGS: Lung volumes are low. Heart and vasculature are normal. No measurable pleural effusion and no pneumothorax. No acute bony abnormality seen. No acute aortic findings suspected. IMPRESSION: No acute cardiopulmonary process. No significant change from comparison.
[2018-07-29 14:37] LABS: AST/SGOT 19 U/L (15-37); Alkaline Phosphatase 90 U/L (45-117); BUN Blood Urea Nitrogen 89 mg/dL (7-18); Bicarbonate 15 mmol/L (21-32); Bilirubin Direct 0.3 mg/dL (0-0.2); Bilirubin Total 2.9 mg/dL (0.2-1.0); Glucose Level 70 mg/dL (74-106); Lipase 130 U/L (73-393); Magnesium 2.4 mg/dL (1.8-2.4); NT PRO-BNP 3751 pg/mL (<125); Protein, Total 8.4 g/dL (6.4-8.2); Sodium Level 136 mmol/L (136-145); Troponin (Emerg Dept Use Only) < 0.02 ng/mL (0.0-0.045)
[2018-07-29 14:38] LABS: ALT/SGPT < 6 U/L (12-78); Potassium 8.2 mmol/L (3.5-5.1)
[2018-07-29] MEDS ORDERED: SODIUM BICARB 50 MEQ/50ML VIAL ONE (14:43)
[2018-07-29] MEDS ORDERED: Caclcium Chloride 10% INJ SYR IV ONE ×2 (14:43→15:23)
[2018-07-29] MEDS ORDERED: ALBUTEROL 2.5 MG/3 ML NEB SOL ONE (14:43)
[2018-07-29] MEDS ORDERED: INSULIN -REGULAR HUMAN 50 UNIT/0.5 ML ML ONE (14:43)
[2018-07-29] MEDS ORDERED: SOD POLYSTYREN SUL 15 GM/60 ML UCUP ONE (14:43)
[2018-07-29] MEDS ORDERED: IPRATROPIUM BROM 0.5MG/2.5ML ONE (14:43)
[2018-07-29] MEDS ORDERED: D5W 0 ML IV ONE (14:44)
[2018-07-29] MEDS ORDERED: D50W 25 GM/50 ML SYRINGE IV ONE (14:45)
[2018-07-29] MEDS ORDERED: NOREPINEPHRINE 4mg/D5W 250mL 4 MG/250 ML BAG IV ONE (15:24)
[2018-07-29 17:19] VITALS: O2SAT 98
[2018-07-29 17:20] VITALS: BP 92/68; TEMP 98.1
--- NOTE | 2018-07-29 18:31 | EKG ---
Test Date: 2018-07-29 Test Time: 12:50:59 Water Purifier: FER MEASUREMENT RESULTS: Intervals: Rate: 90 IA: 172 QRSD: 106 QT: 430 QTc: 526 [place]: P: 95 IA: 172 QRS: -24 T: 57 INTERPRETIVE STATEMENTS: Normal sinus rhythm Low voltage QRS Prolonged QT Peaked T waves, consider hyperkalemia Abnormal ECG Compared to ECG 10/03/2017 17:45:03 Low QRS voltage now present ST (T wave) deviation now present Electronically Signed On 07-29-18 18:30:30 ASSISTANT DISTRICT ATTORNEY by Genaro Yanez
== END 2018-07-29 16:14 ==
LOC: ER 12:04
PROC: 05HP33Z Insertion of Infusion Device into Right External Jugular Vein, Percutaneous Approach (ICD-10-PCS; principal; 2018-07-29)
DX: M79.652 Pain in left thigh (principal); L03.119 Cellulitis of unspecified part of limb; I89.1 Lymphangitis; R53.1 Weakness; D64.9 Anemia, unspecified; I95.9 Hypotension, unspecified; E87.5 Hyperkalemia; I12.0 Hypertensive chronic kidney disease with stage 5 chronic kidney disease or end stage renal disease; N18.6 End stage renal disease; Z99.2 Dependence on renal dialysis
CPT/HCPCS: 36415; 71045; 80048; 80076; 83605; 83690; 83735; 83880; 84145; 84484; 85025; 85610; 87040; 93005; 94640; 99285; J0692; J3370; J7030

== ENCOUNTER 2018-11-29 11:46 | Inpatient (IN) | payer OTHER ==
[2018-11-29 13:01] VITALS: BMI 27.6
[2018-11-29] MEDS ORDERED: CEFEPIME 1 GM/VIAL IV ONE (13:11)
[2018-11-29] MEDS ORDERED: VANCOMYCIN/NS 1 gm 1 GM/250 ML BAG IVPB SCH (13:15)
[2018-11-29] MEDS ORDERED: CEFEPIME/SWI 1gm 10 ML IV ONE (13:30)
[2018-11-29 15:22] LABS: Absolute Lymphocytes (CBC) 0.8 K/uL (0.7-4.9); Basophils % 0.8 % (0-1.3); Eosinophils % 4.4 % (0-4.4); Hematocrit 34.4 % (39.6-49.0); Lymphocytes % 17.2 % (15.3-44.8); MPV 9.1 fL (7.6-11.3); Monocytes % 7.5 % (3.3-12.3); RBC Red Blood Cell Count 3.55 M/uL (4.33-5.43)
[2018-11-29 15:29] LABS: Albumin 2.9 g/dL (3.4-5.0); Bilirubin Total 0.3 mg/dL (0.2-1.0); Protein, Total 8.7 g/dL (6.4-8.2)
[2018-11-29] MEDS: HYDROCODONE/APAP 7.5/325 MG TAB PO PRN ×2 (15:39→21:59)
[2018-11-29 15:44] LABS: Potassium 5.9 mmol/L (3.5-5.1)
[2018-11-29] MEDS: INSULIN -REGULAR HUMAN 50 UNIT/0.5 ML ML SQ SCH ×2 (16:30→21:00)
[2018-11-29] MEDS ORDERED: SOD POLYSTYREN SUL 15 GM/60 ML UCUP PO ONE (16:33)
[2018-11-29] MEDS: CA ACETATE 667 MG CAP PO SCH (16:59)
--- NOTE | 2018-11-29 17:03 | RAD REPORT ---
EXAM DESCRIPTION: Bernard Single View11/29/2018 4:57 pm CLINICAL HISTORY: sob COMPARISON: July 2018 FINDINGS: The lungs appear clear of acute infiltrate. The heart is normal size IMPRESSION: No acute abnormalities displayed
--- NOTE | 2018-11-29 20:44 | RAD REPORT ---
EXAM DESCRIPTION: RAD - Foot Left 2 View - 11/29/2018 4:56 pm CLINICAL HISTORY: Left Foot pain FINDINGS: No fracture or dislocation is seen. Erosion involves the base of the first proximal phalanx suspicious for osteomyelitis. Cortical regularity involves the metatarsal head which may also indicate osteomyelitis or focal osteo porosis
[2018-11-29] MEDS ORDERED: APIXABAN 5 MG TABLET PO SCH (21:00)
[2018-11-29] MEDS: PREGABALIN 50 MG CAP PO SCH (21:57)
--- NOTE | 2018-11-30 00:50 | HP ---
Date of Admission: 11/29/2018 Primary Care Physician: Dr. Echeverria. Consultants: Dr. Diaz, General Surgery; Dr. Benoit with Infectious Disease. Chief Complaint: Left foot wound. History Of Present Illness: The patient is a 43-year-old male with past medical history of hypertension, end-stage renal disease, on hemodialysis, history of deep venous thrombosis and PE on anticoagulation, who comes in with large ulceration on his posterior leg, which has been healing well along with swelling and redness of his left foot with serosanguineous fluid and foul- smelling abscess. The patient was seen by Dr. Echeverria in the wound healing center today and was referred directly to the hospital for treatment. The patient symptoms are constant, moderate, progressively worsening, has been ongoing for the past 2 weeks. The patient did have a bedside debridement done by Dr. Echeverria. The patient has been on IV antibiotics through dialysis center, unclear which ones we will contact Nephrology to further investigate. When seen in the wound healing center, he was awake, alert, oriented x3, in some mild distress. Past Medical History: End-stage renal disease, on hemodialysis; hypertension; history of DVT and PE, on anticoagulation; vascular insufficiency; chronic leg wound; anemia of chronic disease. Also has seizures and neuropathy. Surgical History: The patient has had kidney transplant with subsequent removal. Has had AV grafts put in previously. Now has a dialysis catheter in the left groin. Social History: The patient denies any tobacco use or alcohol use. No illicit drug use. The patient has significant other. Family History: Father had heart disease and hypertension. Review of Systems: Ten-point system reviewed, negative except as per HPI. Physical Examination: Vital Signs: Stable, afebrile, temperature 97.9, pulse 82, respirations 20, blood pressure 99/54. General: Awake, alert, oriented x3, not in any acute distress. HEENT: Normocephalic, atraumatic. PERRLA. EOMI. Moist mucous membranes. Oropharynx is clear. Poor dentition. Conjunctivae are anicteric. Neck: Supple. No JVD. Trachea midline. CV: S1, S2. Regular rate and rhythm. Peripheral pulses weak bilaterally. Respiratory: Clear to auscultation bilaterally. No wheezing or stridor. No use of accessory muscles. Gastrointestinal: Abdomen is soft, nontender, nondistended. Positive bowel sounds. Extremities: No clubbing, cyanosis. The patient has edema of the left foot. No calf tenderness. Skin: The patient has multiple wounds on the left ankle, lateral foot, dorsal foot, and medial foot, ranging from 2.4 cm to 1.1 cm. Has large wound on the left leg measuring 20 x 9 cm, well-healing. There is some pustular drainage from the wounds on the foot. Neuro: Cranial nerves 2-12 intact grossly. No focal neurological deficit. Speech is normal. Sensation decreased to light touch. Psych: Mood is okay. Affect is full. Insight and judgment are fair. Laboratory Data: Pending. MRI is also pending. Assessment: A 43-year-old male with: 1. Left foot wound, multiple ulcerations with abscesses debrided at bedside by Dr. Echeverria with failed outpatient treatment. The patient apparently was on tobramycin with dialysis, unknown start date. We will investigate further. We will start on broad-spectrum IV antibiotics. Consult ID. Obtain blood cultures. 2. End-stage renal disease with hemodialysis. The patient was dialyzed yesterday. We will consult Dr. Cartagena with Nephrology and continue dialysis as scheduled. Avoid any NSAIDs. 3. Essential hypertension. We will resume home medications. 4. Vascular insufficiency. 5. History of DVT and PE, on anticoagulation. 6. Neuropathy. Continue Lyrica. 7. Seizure disorder, on Keppra. We will admit the patient directly to hospital for failed outpatient treatment of foot ulcers. Follow up on culture results. Length of stay, greater than 2 midnights. FINESSE Voice ID: [id number] [id number]
[2018-11-30 02:04] LABS: Absolute Lymphocytes (CBC) 0.9 K/uL (0.7-4.9); Basophils % 0.9 % (0-1.3); Eosinophils % 5.9 % (0-4.4); Hematocrit 31.9 % (39.6-49.0); Lymphocytes % 18.8 % (15.3-44.8); MPV 9.1 fL (7.6-11.3); Monocytes % 8.4 % (3.3-12.3); RBC Red Blood Cell Count 3.36 M/uL (4.33-5.43)
[2018-11-30 02:25] LABS: Potassium 5.8 mmol/L (3.5-5.1)
[2018-11-30] MEDS: HYDROCODONE/APAP 7.5/325 MG TAB PO PRN ×2 (06:18→14:29)
[2018-11-30] MEDS: INSULIN -REGULAR HUMAN 50 UNIT/0.5 ML ML SQ SCH ×3 (07:30→16:30)
[2018-11-30] MEDS: CA ACETATE 667 MG CAP PO SCH ×3 (08:00→16:51)
[2018-11-30] MEDS ORDERED: levETIRAcetam 500 MG TAB PO SCH (09:00)
[2018-11-30] MEDS ORDERED: DOCUSATE NA 100 MG CAP PO SCH (09:00)
[2018-11-30] MEDS ORDERED: MEDIHONEY 44 ML TOPICAL TUBE TOP SCH (09:00)
[2018-11-30] MEDS ORDERED: NA CHLORIDE 0.9% 500 ML ONE (10:21)
[2018-11-30] MEDS: MEPERIDINE HCL 25 MG/0.5 ML ONE ×4 (11:24→12:26)
[2018-11-30] MEDS ORDERED: MIDAZOLAM HCL 2 MG/2 ML INJ ONE (11:37)
[2018-11-30] MEDS ORDERED: FENTANYL CITR 100 MCG/2 ML ONE ×2 (11:37→12:50)
--- NOTE | 2018-11-30 11:58 | P.OP ---
Preoperative diagnosis: LEFT foot chronic wound Postoperative diagnosis: LEFT foot chronic wound Primary procedure: Debridement of LEFT foot chronic wound Anesthesia: MAC + Local Estimated blood loss: <2cc Specimen: Cultures sent Findings: necrotic tissue with exposed metatarsophalangeal joint, Complications: None Transferred to: Recovery Room Condition: Good
[2018-11-30] MEDS ORDERED: BUPIVACA 0.5%/EPI 0.0005%/PF 30 ML VIAL ONE (13:29)
[2018-11-30 13:50] VITALS: O2SAT 94
[2018-11-30] MEDS ORDERED: CEFEPIME 1 GM/VIAL IV SCH (13:53)
[2018-11-30] MEDS: PREGABALIN 50 MG CAP PO SCH (14:29)
--- NOTE | 2018-11-30 14:36 | CON ---
Date of Consultation: 11/29/2018 Brief History Of Present Illness: The patient is a 43-year-old gentleman with a his tory of significant peripheral vascular disease, hypertension, end-stage renal disease on hemodialysi s, who has a history of DVT and pulmonary embolus on anticoagulation, who comes in with large ulcerat ion on the left lower extremity [id number], which has been chronically treated by a vascular surg norman doctor at [facility], Dr. Kee, by the patient's recall. He states he has had m ultiple vascular procedures, but cannot tell me what they are. He believes he has had a revasculariz ation procedure, but again is uncertain how many and what the nature of these procedures were. He co ntinues to smoke heavily and has noted increased odor and pain of the left foot at this time. He had been seen in the [facility] by Dr. Echeverria who referred him to the hospital for treatment. The foot symptoms have been getting progressively worse over the past 2 weeks by report. He has been on IV antibiotics at the dialysis center. It is unclear on which antibiotics he has been on for this. Past Medical History: End-stage renal disease, hemodialysis, hypertension, PE, DVT on anticoagulatio n, peripheral vascular disease, arterial insufficiency, chronic leg wound of the left lower extremity , anemia, chronic disease, seizures, neuropathy. Past Surgical History: Kidney transplant with subsequent removal, AV graft put in previously, dialys is catheter in the left groin. He has had multiple revascularization procedures by his report, but i s uncertain of the specifics or the timing. Social History: He currently uses tobacco on a daily basis and has been smoking since being admitted to the hospital. He denies alcohol or recreational drug use of any kind. His father had heart dise ase, hypertension. Review of Systems: A 10-point review of systems other than HPI, denies. Physical Examination: Vital Signs: His BMI is 27.6. His vital signs were a blood pressure of 123/89, pulse 74, respirator y rate 18, temperature 97.5. General: He is awake, alert, oriented. Psychiatric: He is appropriate, conversive. HEENT: His head is normocephalic. His sclerae are slightly icteric and he has anisocoria. Neck: Otherwise supple with no JVD. There are multiple scars in the neck area. Extremities: Focused examination of the left lower extremity; he has a large chronic granulating wou nd of the left lower extremity below the knee with exposed tibia bone, which he states has been getti ng significantly better. Focused exam down on the same left foot; there is an open necrotic wound wi th infection along the metatarsophalangeal joint of the great toe. It is more on the medial aspect o f this and his foot is swollen and has some edema and has tenderness to palpation. Laboratory Data: Reveals white blood cell count of 4.7, hemoglobin is 10.5/hematocrit of 34.4, plate let count is 222. Neutrophils are normal at 70%. His sodium 137, potassium 5.5, chloride 104, carbo n dioxide 22, BUN 57, creatinine 8.9, glucose is 69, total bilirubin 0.3, AST 9, ALT 16, alkaline clint sphatase 71. He had imaging performed, which included a chest x-ray and a foot x-ray. The foot x-ra y was officially read as no fracture, dislocation seen of the left foot. Erosion involves the base o f the first proximal phalanx suspicious for osteomyelitis. Cortical regularity involves the metatars al head, which may also indicate osteomyelitis or osteoporosis. Assessment And Plan: This is a 43-year-old male with a left foot wound with multiple ulcerations and large wounds of the left leg and poor blood supply to this area and his failed outpatient treatment. 1.IV antibiotic coverage. 2.Consult infectious Disease, Dr. Benoit. 3.I believe that the foot wound needs at least minimal debridement at this point as the patient has stated he does not want to and will not submit for any amputations. I feel that the patient's poor v ascular situation with his concomitant usage of tobacco and general appearance of his left lower extr emity, the patient will likely need an amputation at some point in the future. However, as stated be fore, the patient absolutely refuses to even consider any form of amputation as such. I have recomme nded a minimal debridement of this area and continue antibiotic coverage and refer him back to his va scular surgeon as soon as possible for vascular assessment to see if this lower extremity can be lucio scularized to help with wound healing as the poor vascular status of his leg will compromise any hope of reasonable recovery and limb salvage. I have explained to the patient that debridement will not cure this if the osteomyelitis continues to advance and antibiotics will likely be insufficient to si mply treat this and he will likely need additional surgical procedures, which may include amputations or debridements at multiple levels depending on his ability to be revascularized. Once again, he is reiterated that he does not want any amputations and would like to see his vascular surgeon prior to consideration of any other procedure beyond a simple debridement. As such, we will proceed with a s imple debridement in the operating room with the above stated plan. The patient agrees to proceed as indicated. Thank you for this interesting consult. ARNIE/ASHLEY Voice ID: [id number] Report ID: [id number]
[2018-11-30] MEDS ORDERED: CEFEPIME IV SCH (15:00)
[2018-11-30] MEDS ORDERED: WATER FOR INJ STERILE IV SCH (15:00)
--- NOTE | 2018-11-30 15:48 | PN ---
Date of Progress Note: 11/30/2018 Subjective: The patient is seen and examined. Chart reviewed, and case discussed with RN and Dr. Diaz. The patient continues to go downstairs to smoke despite his chronic vascular insufficiency. The patient has been counseled extensively regarding smoking cessation. The patient is scheduled for I and D today. X-ray of the left foot showed osteo. Medications: List reviewed. Physical Examination: Vital Signs: Temperature 97.4, heart rate 74, blood pressure 106/55, respirations 16, O2 of 96% on room air. General: Awake, alert, oriented x3, in some mild distress, appears older than stated age. An ill-appearing male. CV: S1 and S2. Regular rate and rhythm. Peripheral pulses weak. Respiratory: Clear to auscultation bilaterally. No wheezing. Gastrointestinal: Abdomen is soft, nontender, nondistended. Positive bowel sounds. Extremities: No clubbing or cyanosis. The patient has edema of the left lower extremity. Neuro: Cranial nerves 2 through 12 intact grossly. No focal neurological deficit. Speech is normal. Skin: The patient has large wound, 20 x 9 cm, on the left thigh with good granulation tissue and healing. The patient also has multiple ulcerations on the left foot, lateral and dorsal aspect, as well as along the heel, which do have some necrosis and pustular drainage, foul smelling. Laboratory Data: Sodium 139, potassium 5.8, chloride 102, CO2 of 23, BUN 67, creatinine 9.53, glucose 91, calcium 6.8. WBC 4.8, H and H 9.9 and 31.9, platelets 228, neutrophils 66%. Foot x-ray shows erosion involves the base of the first proximal phalanx, suspicious for osteomyelitis. Cortical irregularity involves the metatarsal head, which may also indicate osteomyelitis or focal osteoporosis. Assessment: A 43-year-old male with: 1. Left lower extremity cellulitis and vascular ulcerations with failed outpatient treatment. The patient had been on tobramycin since the 23 of November with dialysis. For now, we will continue with broad-spectrum IV antibiotics. ID has been consulted. Blood cultures are still pending. Wound cultures taken from the W[facility] Care Center also pending at this time. We will follow up with culture results. 2. End-stage renal disease with hemodialysis. The patient will be dialyzed again today. Appreciate Dr. Cartagena's input. 3. Hyperkalemia, treated with Kayexalate. We will continue with monitoring potassium. Expect improvement with dialysis. 4. Essential hypertension, stable, on home medications. 5. Peripheral arterial disease. The patient has significant vascular insufficiency. Has been seeing Dr. Kee at [facility] for 20 years. The patient will need to return to Vascular Surgery [facility]. The patient risks losing his leg to amputation due to his vascular insufficiency. 6. History of deep venous thrombosis and pulmonary embolism, on anticoagulation, currently held due to surgery. We will resume 24 hours post. 7. Neuropathy. We will continue with Lyrica. 8. Seizure disorder. Continue Keppra. Plan: Anticipate I and D today. We will resume anticoagulations 24 hours post surgery. The patient will need long-term IV antibiotics likely through dialysis. The patient has no IV access. May need PICC line. Outpatient followup with Vascular Surgery, Dr. Kee, as soon as possible. Overall poor prognosis. ADDENDUM: Consultants recommending transfer to vascular surgeon at [facility]. Contacted Dr. Oswald office and pt was accepted. Also spoke with transfer center to coordinate transfer and spoke with Dr. Barron at [facility] who will be the accepting physician FINESSE Voice ID: [id number] Report ID: [id number] ANTONI
[2018-11-30 18:04] VITALS: BP 116/56; TEMP 97.2
--- NOTE | 2018-11-30 19:17 | CON ---
History Of Present Illness: This is a 43-year-old male with significant history of hemodialysis for 22 years. The patient is coming in with left foot wound, which has been debrided by surgical team. The patient also has significant history of hypertension, deep venous thrombosis, pulmonary embolism, on anticoagulation therapy. Developed a large ulcer to the left foot and leg. The patient denies a ny other problems. Also had foul-smelling abscess, which has been debrided. Past Medical History: As per HPI. Surgical History: Kidney transplant, which was subsequently removed, AV graft placement. Social History: Nonsmoker, nondrinker. Family History: Noncontributory. Medications: Cefepime and vancomycin. See [facility] for other medication. Allergies: NO KNOWN DRUG ALLERGIES. Review of Systems: A 10-point review was performed. Physical Examination: General: This is a 43-year-old male, lying in bed, not in any acute cardiopulmonary distress. Vital Signs: Temperature 97, pulse 65, respirations 16, blood pressure 123/58. HEENT: Unremarkable. Neck: Supple. Lungs: Basal crackles. Heart: S1, S2. Regular. Abdomen: Soft. Bowel sounds present. Extremities: Left foot in surgical dressing. Laboratory Data: Shows WBC 4.8, hemoglobin 9.9, platelets are 228. Chemistry shows sodium 139, pota ssium 5.8, chloride 102, bicarb 23, BUN 67, creatinine 9.5, glucose is 91. Micro data; blood culture s negative for 24 hours. Assessment/plan: Continue intravenous antibiotics. Peripheral vascular disease, end-stage renal dis ease. Prognosis guarded. The patient is being transferred to [facility] for cardiovascular s urgery evaluation. We will follow the patient as needed. NF/MODL Voice ID: [id number] Report ID: [id number]
--- NOTE | 2018-11-30 23:35 | OP ---
Date of Procedure: 11/30/2018 Surgeon: Venkat Diaz MD, Preoperative Diagnosis: Left chronic foot wound. Postoperative Diagnosis: Left chronic foot wound. Procedure Performed: Debridement of left chronic foot wound. Anesthesia: MAC plus local with 0.25% Marcaine with epinephrine. Specimen: Cultures sent. Findings: Necrotic tissue over the left foot, medial aspect of metatarsophalangeal joint, with expos ed bone under necrotic tissue. Complications: None. Disposition: Transferred to recovery room in good condition. Procedure In Detail: Informed consent was obtained. The patient was brought to the operating room, prepped and draped in the usual sterile fashion. After adequate anesthesia was achieved, I debrided the area of the metatarsophalangeal joint on the left foot as there was a necrotic wet gangrenous andrea earing wound. I circumscribed the wound with a 15 blade scalpel getting down to good tissue that had some bleeding from the area, although the blood supply was poor throughout. After this was debrided completely, the necrotic tissue was removed over the top exposing the metatarsophalangeal joint. Th e distal proximal phalanx appeared to have some discoloration to the bone consistent with a possible early osteomyelitis, and there were some cortical irregularities as well. The metatarsal in appositi on appeared clean without any obvious infection to the bone, but the surrounding tissues appeared to have some necrosis and infectious component. Cultures were sent at this time. All necrotic tissue w as debrided with a combination of curette, rongeur, and sharp dissection. After this was performed, there were no additional hemostatic maneuvers required. There was minimal bleeding from this area, b ut it appeared that there was some blood supply to the region, and as such, I irrigated the area mult iple times, put a Betadine-soaked gauze into this area, curetted an adjacent small superficial wound to the dorsum of the foot which is about a centimeter just proximal to the webspace of the second and third metatarsal. I cleansed this area also with irrigation and placed a Betadine-soaked gauze over this. A sterile dressing was placed over the top. The patient tolerated the procedure without evid ence of complication, transferred to the PACU in good condition. All counts were correct at the end of the case. ARNIE/ASHLEY Voice ID: [id number] Report ID: [id number]
--- NOTE | 2018-12-05 00:21 | DS ---
Date of Discharge: 11/30/2018 Consultants: Dr. Benoit with Infectious Disease, Dr. Diaz with General Surgery, Dr. Mitzi maya h Nephrology. Procedures: On 11/30/2018, the patient had debridement of the left foot with exposed metatarsophalan geal joint. Admitting Diagnoses: 1.Left foot wound, multiple ulcerations and abscesses; failed outpatient treatment. 2.Cellulitis of the left lower extremity. 3.End-stage renal disease with hemodialysis. 4.Essential hypertension. 5.Vascular insufficiency. 6.History of DVT and PE, on anticoagulation. 7.Neuropathy. 8.Seizure disorder, on Keppra. Discharge Diagnoses: 1.Left foot osteomyelitis, status post debridement. 2.Cellulitis of the left lower extremity. 3.End-stage renal disease with hemodialysis. 4.Hyperkalemia. 5.Essential hypertension. 6.Peripheral arterial disease. 7.Neuropathy. 8.Seizure disorder. Hospital Course: The patient is a 43-year-old male, who was admitted directly from the wound care [facility] for left foot wound. The patient has a large wound on his leg, which is chronic, healing, [facility], has new ulcerations and abscesses on his left foot, which have developed over the past few days. The patient has been on tobramycin since 11/23/2018. The patient has foul-smelling wounds and x-ray revealed osteomyelitis. The patient was unable to tolerate the MRI due to pain. The patient was st arted on broad-spectrum IV antibiotics. Cultures were obtained. Cultures grew out Enterobacter cloa . The patient was also seen by Dr. Diaz with General Surgery, who took the patient for debride ment. The patient's blood cultures were negative. Due to the patient's long-standing peripheral vas cular disease, there is concern for the patient not being able to heal his wounds. Therefore, Dr. Yovany Kee with [facility] was contacted and recommended transfer the patient to his facility for continuity of care and for vascular surgery services which are not available at [facility]. The patient continued his dialysis as per schedule. Nephrology was also on board. The figueroa ent's electrolytes were corrected. He was then transferred to [facility] for further workup of his vascular status to preserve his limb. The patient was counseled extensively against s moking. He understands that if he does not change his lifestyle, he will likely within the next 2-3 years due to his peripheral vascular disease, recurrent infections, end-stage renal disease, and other comorbidities. For physical exam findings, please see progress note dictated on the day of dis charge. Total time spent transferring the patient was 47 minutes. FINESSE Voice ID: [id number] Report ID: [id number]
== END 2018-11-30 18:25 | disposition short-term general hospital (02) | DRG 579 ==
LOC: 2ND 11:46
PROVIDERS: ADMIT Family Medicine; ATTEND Family Medicine
PROC: 0QDM0ZZ Extraction of Left Tarsal, Open Approach (ICD-10-PCS; principal; 2018-11-30 10:15)
DX: L97.526 Non-pressure chronic ulcer of other part of left foot with bone involvement without evidence of necrosis (principal); N18.6 End stage renal disease; I12.0 Hypertensive chronic kidney disease with stage 5 chronic kidney disease or end stage renal disease; L03.116 Cellulitis of left lower limb; Z99.2 Dependence on renal dialysis; I99.8 Other disorder of circulatory system; D63.8 Anemia in other chronic diseases classified elsewhere; G62.9 Polyneuropathy, unspecified; G40.909 Epilepsy, unspecified, not intractable, without status epilepticus; F17.210 Nicotine dependence, cigarettes, uncomplicated; E87.5 Hyperkalemia; Z79.01 Long term (current) use of anticoagulants; Z86.711 Personal history of pulmonary embolism; Z86.718 Personal history of other venous thrombosis and embolism; Z90.5 Acquired absence of kidney
CPT/HCPCS: 36415; 71045; 80048; 80053; 82962; 84132; 85025; 87040; 87070; 87075; 87077; 87186; 87205; 88304; 94760; J0692; J2175; J2250; J3010

== ENCOUNTER 2019-02-27 16:39 | Inpatient (IN) | payer OTHER ==
[2019-02-27] MEDS ORDERED: ONDANSETRON 4 MG/2 ML VIAL ONE (17:16)
[2019-02-27] MEDS ORDERED: FENTANYL CITR 100 MCG/2 ML ONE (17:16)
[2019-02-27] MEDS ORDERED: NA CHLORIDE 0.9% 1,000 ML ONE (17:17)
[2019-02-27 17:21] LABS: Absolute Lymphocytes (CBC) 0.6 K/uL (0.7-4.9); Basophils % 0.7 % (0-1.3); Hematocrit 37.2 % (39.6-49.0); Lymphocytes % 5.6 % (15.3-44.8); MPV 9.8 fL (7.6-11.3); Protime INR 1.29; RBC Red Blood Cell Count 3.88 M/uL (4.33-5.43)
--- NOTE | 2019-02-27 17:37 | RAD REPORT ---
EXAM DESCRIPTION: RAD - Chest Single View - 02/27/2019 5:22 pm CLINICAL HISTORY: COUGH Chest pain. COMPARISON: Chest Single View dated 11/29/2018; Chest Single View dated 07/29/2018; Chest Single View dated 10/03/2017; Chest Single View dated 08/24/2016 FINDINGS: Portable technique limits examination quality. The lungs are grossly clear. The heart is normal in size. No displaced fractures.Tubing projects over the midline inferior aspect of the chest. IMPRESSION: No acute intrathoracic process suspected.
[2019-02-27 17:47] LABS: ALT/SGPT 8 U/L (12-78); AST/SGOT 5 U/L (15-37); Albumin 3.1 g/dL (3.4-5.0); Alkaline Phosphatase 74 U/L (45-117); BUN Blood Urea Nitrogen 61 mg/dL (7-18); Bicarbonate 21 mmol/L (21-32); Bilirubin Direct 0.2 mg/dL (0-0.2); Bilirubin Total 0.5 mg/dL (0.2-1.0); Glucose Level 94 mg/dL (74-106); Lipase 83 U/L (73-393); Magnesium 2.1 mg/dL (1.8-2.4); NT PRO-BNP 2646 pg/mL (<125); Potassium 4.2 mmol/L (3.5-5.1); Protein, Total 8.9 g/dL (6.4-8.2); Sodium Level 136 mmol/L (136-145); Troponin (Emerg Dept Use Only) < 0.02 ng/mL (0.0-0.045)
--- NOTE | 2019-02-27 18:36 | ER ---
Nurse's Notes [facility] Name: Shawn Devi Age: 43 yrs Sex: Male : 1975 Arrival Date: 02/27/2019 Time: 16:41 Bed 26 Private MD: Diagnosis: Unspecified open wound, left lower leg-and foot;End stage renal disease;Weakness;Hypotension;Altered mental status, unspecified Presentation: 02/27 16:42 Presenting complaint: EMS states: He was at dialysis and his nurse noticed some altered aj1 mental status and tachycardia toward the end of his treatment, so she called 911. Patient was 3 hours into his treatment, HD nurse said he had an hour left. HD nurse states patient's K was 8.5 prior to initiating dialysis. Patient reports generalized weakness and pain to chronic wounds on his left leg. Transition of care: patient was not received from another setting of care. Onset of symptoms was February 27, 2019. Risk Assessment: Do you want to hurt yourself or someone else? Patient reports no desire to harm self or others. Initial Sepsis Screen: Does the patient meet any 2 criteria? HR > 90 bpm. No. Patient's initial sepsis screen is negative. Does the patient have a suspected source of infection? Yes: Skin breakdown/wound. Care prior to arrival: None. 16:42 Method Of Arrival: EMS: [facility] aj1 16:42 Acuity: REGINA 3 aj1 Historical: - Allergies: 16:48 No Known Allergies; aj1 - Home Meds: 16:48 calcitriol 0.5 mcg Oral cap 1 cap once daily [Active]; calcium carbonate 500 mg calcium aj1 (1,250 mg) Oral tab 500 mg four times a day [Active]; Keppra 500 mg Oral tab 1 tab daily [Active]; Renvela 800 mg Oral tab 3 tab 3 times per day [Active]; [place] Oral [Active]; - PMHx: 16:48 Dialysis; Hypertension; DVT- with sx to remove; mulptiple wounds; Renal Disease; aj1 - PSHx: 16:48 grafts; mark in groin for dialysis; daily arm fistulas; kidney transplant failed; skin aj1 grafts/chronic infection; - Immunization history:: Adult Immunizations up to date. - Ebola Screening: : Patient denies travel to an Ebola-affected area in the 21 days before illness onset. - Family history:: not pertinent. - Social history:: Smoking status: Patient uses tobacco products, smokes one pack cigarettes per day. Screenin:15 Abuse screen: Denies threats or abuse. Denies injuries from another. Nutritional ca1 screening: On renal diet. Tuberculosis screening: No symptoms or risk factors identified. Fall Risk IV access (20 points). Gait- Impaired (20 pts.). Assessment: 16:55 Reassessment: Provider at bedside. ca1 17:15 General: Appears in no apparent distress. comfortable, Behavior is cooperative, drowsy, ca1 Reports reported pt had been feeling sleepy for 3 days now. states, "he falls asleep in the middle of a conversation". 17:15 Neuro: Level of Consciousness is obeys commands, lethargic, Oriented to person, place, ca1 time, situation, Appropriate for age. Cardiovascular: Heart tones S1 S2 present Capillary refill < 3 seconds Patient's skin is warm and dry. Rhythm is sinus tachycardia. Respiratory: Airway is patent Respiratory effort is even, unlabored, Respiratory pattern is regular, symmetrical, Breath sounds are clear bilaterally. GI: Abdomen is round non-distended, Bowel sounds present X 4 quads. Abd is soft and non tender X 4 quads. : No signs and/or symptoms were reported regarding the genitourinary system. EENT: No deficits noted. No signs and/or symptoms were reported regarding the EENT system. Derm: Skin is healthy with good turgor, Skin is pink, warm \\T\\ dry. Wound noted left foot and left leg Wound is dressing is clean and dry. Pt reported that wounds were dressed yesterday. Musculoskeletal: Circulation, motion, and sensation intact. Capillary refill < 3 seconds. 17:15 Pain: Complains of pain in left leg Pain currently is 7 out of 10 on a pain scale. ca1 17:55 Reassessment: Patient appears in no apparent distress at this time. No changes from ca1 previously documented assessment. Patient and/or family updated on plan of care and expected duration. Pain level reassessed. and daughter at bedside. 17:56 Reassessment: Critical Lab: Crea 9.83. Notified provider. ca1 18:01 Reassessment: Pt ate a burger brought by . Notified provider. ca1 18:05 Reassessment: states, "that is actually his normal BP at home. They usually give ca1 him a medication before dialysis to increase the BP". Notified provider. 18:54 Reassessment: Patient appears in no apparent distress at this time. No changes from ca1 previously documented assessment. Patient and/or family updated on plan of care and expected duration. Pain level reassessed. 19:00 Derm: Wound noted posterior aspect of left knee and left calf Wound is is clean, dry, ca1 surrounding skin is black. No drainage noted, warm and tender to touch. Musculoskeletal: Swelling present in left foot. 19:05 Derm: Wound noted posterior aspect of left knee and left calf Wound is Dry, clean and ca1 pink. No drainage noted. 19:22 Reassessment: Dr. Echeverria at bedside. ca1 20:32 Reassessment: Patient appears in no apparent distress at this time. Patient and/or ca1 family updated on plan of care and expected duration. Pain level reassessed. Patient is alert, oriented x 3, equal unlabored respirations, skin warm/dry/pink. Reassessment:. Vital Signs: 16:48 BP 126 / 103; Pulse 113; Resp 19; Temp 98.5; Pulse Ox 99% on R/A; aj1 17:55 BP 87 / 43; Pulse 105; Resp 22; Pulse Ox 97% on R/A; ca1 18:54 BP 85 / 47; Pulse 101; Resp 15 S; Temp 98.5(TE); Pulse Ox 100% on R/A; ca1 19:58 BP 84 / 46 RL; Pulse 94; Resp 19 S; Pulse Ox 97% ; ca1 20:31 BP 91 / 63; Pulse 92; Resp 15 S; Pulse Ox 99% on R/A; ca1 ED Course: 16:41 Patient arrived in ED. iw 16:41 Prudencio Moreno MD is Attending Physician. siena 16:45 Triage completed. aj1 16:48 Arm band placed on Patient placed in an exam room. aj1 17:00 No provider procedures requiring assistance completed. Inserted saline lock: 18 gauge ca1 in left EJ, using aseptic technique. ,using aseptic technique. by Dr. Moreno Blood collected. 17:00 Initial lab(s) drawn, by ED staff, sent to lab. First set of blood cultures drawn by ca1 physician. 17:12 Kailey Pineda, KARLA is Primary Nurse. ca1 17:15 Patient has correct armband on for positive identification. Bed in low position. Call ca1 light in reach. Side rails up X2. cardiac monitor technician on. Pulse ox on. NIBP on. Warm blanket given. 17:24 XRAY Chest (1 view) In Process Unspecified. EDMS 18:31 Ángel Echeverria MD is Hospitalizing Provider. siena 19:56 Patient admitted, IV remains in place. Dressings: Adaptic X 2; left foot and left leg. ca1 Wound care: to cellulitis located on left foot was cleaned with Hibiclens, dressed with 4X4s, Kerlix, Patient tolerated well. Administered Medications: 17:23 Drug: fentaNYL (PF) 25 mcg Route: IVP; Site: left jugular; ca1 18:03 Follow up: Response: No adverse reaction; Pain is unchanged, physician notified; RASS: ca1 Drowsy (-1) 17:47 Drug: NS 0.9% 1000 ml Route: IV; Rate: 75 ml/hr; Site: left jugular; ca1 18:02 Drug: fentaNYL (PF) 25 mcg {Note: RASS - 1.} Route: IVP; Site: left jugular; ca1 18:20 Drug: NS 0.9% 250 ml Route: IV; Rate: bolus; Site: left jugular; ca1 19:55 Follow up: Response: No adverse reaction; IV Status: Completed infusion ca1 18:56 Drug: NS 0.9% 250 ml Route: IV; Rate: bolus; Site: left jugular; ca1 18:56 Follow up: IV Status: Completed infusion ca1 18:57 Drug: Cefepime 1 grams Route: IVPB; Rate: 200 ml/hr; Infused Over: 30 mins; Site: left ca1 jugular; 19:28 Follow up: Response: No adverse reaction; IV Status: Completed infusion ca1 19:30 Drug: vancoMYCIN 1 grams Route: IVPB; Infused Over: 2 hrs; Site: left jugular; ca1 Outcome: 18:34 Decision to Hospitalize by Provider. siena 20:49 Admitted to Tele accompanied by nurse, accompanied by tech, via stretcher, room 422, ca1 with chart, Report called to Judi Solis RN 20:49 Condition: stable 20:49 Instructed on the need for admit. 21:21 Patient left the ED. ca1 Signatures: Dispatcher [employer] Amaris Ram RN RN aj1 Prudencio Moreno MD MD cha Williams, Irene, RN RN iw Kailey Pineda RN RN ca1 Corrections: (The following items were deleted from the chart) 18:15 18:05 Reassessment: states, "that is actually his normal BP at home. They usually ca1 give him a medication before dialysis to increase the BP" ca1
--- NOTE | 2019-02-27 18:36 | EDPHYS ---
Physician Documentation [facility] Name: Shawn Devi Age: 43 yrs Sex: Male : 1975 Arrival Date: 02/27/2019 Time: 16:41 Bed 26 Private MD: ED Physician Prudencio Moreno HPI: 02/27 17:04 This 43 yrs old Black Male presents to ER via EMS with complaints of weakness, siena ams,hypotension and leg pain. 17:04 dialysis, pre K 8.5. The patient presents with confusion, trouble concentrating. Onset: siena The symptoms/episode began/occurred just prior to arrival. Possible causes: unknown. Associated signs and symptoms: The patient has no apparent associated signs or symptoms. Onset: The symptoms/episode began/occurred yesterday. Patient's baseline: Neuro: alert and fully oriented. Severity of symptoms: At their worst the symptoms were moderate in the emergency department the symptoms have improved moderately. The patient has experienced similar episodes in the past, a few times. Historical: - Allergies: 16:48 No Known Allergies; aj1 - Home Meds: 16:48 calcitriol 0.5 mcg Oral cap 1 cap once daily [Active]; calcium carbonate 500 mg calcium aj1 (1,250 mg) Oral tab 500 mg four times a day [Active]; Keppra 500 mg Oral tab 1 tab daily [Active]; Renvela 800 mg Oral tab 3 tab 3 times per day [Active]; [place] Oral [Active]; - PMHx: 16:48 Dialysis; Hypertension; DVT- with sx to remove; mulptiple wounds; Renal Disease; aj1 - PSHx: 16:48 grafts; mark in groin for dialysis; daily arm fistulas; kidney transplant failed; skin aj1 grafts/chronic infection; - Immunization history:: Adult Immunizations up to date. - Ebola Screening: : Patient denies travel to an Ebola-affected area in the 21 days before illness onset. - Family history:: not pertinent. - Social history:: Smoking status: Patient uses tobacco products, smokes one pack cigarettes per day. ROS: 17:04 Constitutional: Negative for fever, chills, and weight loss, Eyes: Negative for injury, siena pain, redness, and discharge, ENT: Negative for injury, pain, and discharge, Neck: Negative for injury, pain, and swelling, Cardiovascular: Negative for chest pain, palpitations, and edema, Respiratory: Negative for shortness of breath, cough, wheezing, and pleuritic chest pain, Abdomen/GI: Negative for abdominal pain, nausea, vomiting, diarrhea, and constipation, Back: Negative for injury and pain, : Negative for injury, bleeding, discharge, and swelling, Skin: Negative for injury, rash, and discoloration, Psych: Negative for depression, anxiety, suicide ideation, homicidal ideation, and hallucinations, Allergy/Immunology: Negative for hives, rash, and allergies, Endocrine: Negative for neck swelling, polydipsia, polyuria, polyphagia, and marked weight changes, Hematologic/Lymphatic: Negative for swollen nodes, abnormal bleeding, and unusual bruising. 17:04 MS/extremity: Positive for pain, of the right leg and left leg. Exam: 17:04 Constitutional: This is a well developed, well nourished patient who is awake, alert, siena and in no acute distress. Head/Face: Normocephalic, atraumatic. Eyes: Pupils equal round and reactive to light, extra-ocular motions intact. Lids and lashes normal. Conjunctiva and sclera are non-icteric and not injected. Cornea within normal limits. Periorbital areas with no swelling, redness, or edema. ENT: Nares patent. No nasal discharge, no septal abnormalities noted. Tympanic membranes are normal and external auditory canals are clear. Oropharynx with no redness, swelling, or masses, exudates, or evidence of obstruction, uvula midline. Mucous membranes moist. Neck: Trachea midline, no thyromegaly or masses palpated, and no cervical lymphadenopathy. Supple, full range of motion without nuchal rigidity, or vertebral point tenderness. No Meningismus. Chest/axilla: Normal chest wall appearance and motion. Nontender with no deformity. No lesions are appreciated. Respiratory: Lungs have equal breath sounds bilaterally, clear to auscultation and percussion. No rales, rhonchi or wheezes noted. No increased work of breathing, no retractions or nasal flaring. Abdomen/GI: Soft, non-tender, with normal bowel sounds. No distension or tympany. No guarding or rebound. No evidence of tenderness throughout. Back: No spinal tenderness. No costovertebral tenderness. Full range of motion. Male : Normal genitalia with no discharge or lesions. Skin: Warm, dry with normal turgor. Normal color with no rashes, no lesions, and no evidence of cellulitis. MS/ Extremity: Pulses equal, no cyanosis. Neurovascular intact. Full, normal range of motion. Neuro: Awake and alert, GCS 15, oriented to person, place, time, and situation. Cranial nerves II-XII grossly intact. Motor strength 5/5 in all extremities. Sensory grossly intact. Cerebellar exam normal. Normal gait. Psych: Awake, alert, with orientation to person, place and time. Behavior, mood, and affect are within normal limits. 17:04 Cardiovascular: Rate: tachycardic, Rhythm: regular, Pulses: Pulses are 4+ in bilateral radial, brachial, femoral, popliteal, posterior tibial and and dorsalis pedis arteries.. Heart sounds: normal, Edema: is not appreciated, JVD: is noted bilaterally, to 3 cm. Vital Signs: 16:48 BP 126 / 103; Pulse 113; Resp 19; Temp 98.5; Pulse Ox 99% on R/A; aj1 17:55 BP 87 / 43; Pulse 105; Resp 22; Pulse Ox 97% on R/A; ca1 18:54 BP 85 / 47; Pulse 101; Resp 15 S; Temp 98.5(TE); Pulse Ox 100% on R/A; ca1 19:58 BP 84 / 46 RL; Pulse 94; Resp 19 S; Pulse Ox 97% ; ca1 20:31 BP 91 / 63; Pulse 92; Resp 15 S; Pulse Ox 99% on R/A; ca1 Procedures: 17:08 Peripheral line: by aseptic technique a peripheral line was placed in the left external [facility] jugular vein. MDM: 16:42 Patient medically screened. [facility] 17:07 Data reviewed: vital signs, nurses notes, lab test result(s), EKG, radiologic studies, [facility] plain films. 02/27 17:03 Order name: Basic Metabolic Panel; Complete Time: 18:12 [facility] 02/27 17:03 Order name: CBC with Diff [facility] 02/27 17:03 Order name: LFT's; Complete Time: 18:12 [facility] 02/27 17:03 Order name: Magnesium; Complete Time: 18:12 [facility] 02/27 17:03 Order name: NT PRO-BNP; Complete Time: 18:12 [facility] 02/27 17:03 Order name: PT-INR; Complete Time: 18:12 [facility] 02/27 17:03 Order name: Troponin (emerg Dept Use Only); Complete Time: 18:12 [facility] 02/27 17:03 Order name: XRAY Chest (1 view); Complete Time: 18:12 [facility] 02/27 17:03 Order name: Lipase; Complete Time: 18:12 [facility] 02/27 17:03 Order name: Blood Culture Adult (2) [facility] 02/27 17:03 Order name: Procalcitonin; Complete Time: 18:12 [facility] 02/27 17:03 Order name: Lactate; Complete Time: 18:12 [facility] 02/27 17:05 Order name: Glucose, Ancillary Testing; Complete Time: 18:12 [facility] 02/27 17:03 Order name: EKG; Complete Time: 17:06 [facility] 02/27 17:03 Order name: Cardiac monitoring; Complete Time: 17:12 [facility] 02/27 17:03 Order name: EKG - Nurse/Tech; Complete Time: 17:48 [facility] 02/27 17:03 Order name: IV Saline Lock; Complete Time: 17:12 [facility] 02/27 17:03 Order name: Labs collected and sent; Complete Time: 17:12 [facility] 02/27 17:03 Order name: O2 Per Protocol; Complete Time: 17:12 [facility] 02/27 17:03 Order name: O2 Sat Monitoring; Complete Time: 17:12 [facility] 02/27 18:57 Order name: CONS Physician Consult [facility] 02/27 18:57 Order name: CONS Physician Consult [facility] 02/27 18:31 Order name: Wound Care; Complete Time: 19:53 [facility] Administered Medications: 17:23 Drug: fentaNYL (PF) 25 mcg Route: IVP; Site: left jugular; ca1 18:03 Follow up: Response: No adverse reaction; Pain is unchanged, physician notified; RASS: ca1 Drowsy (-1) 17:47 Drug: NS 0.9% 1000 ml Route: IV; Rate: 75 ml/hr; Site: left jugular; ca1 18:02 Drug: fentaNYL (PF) 25 mcg {Note: RASS - 1.} Route: IVP; Site: left jugular; ca1 18:20 Drug: NS 0.9% 250 ml Route: IV; Rate: bolus; Site: left jugular; ca1 19:55 Follow up: Response: No adverse reaction; IV Status: Completed infusion ca1 18:56 Drug: NS 0.9% 250 ml Route: IV; Rate: bolus; Site: left jugular; ca1 18:56 Follow up: IV Status: Completed infusion ca1 18:57 Drug: Cefepime 1 grams Route: IVPB; Rate: 200 ml/hr; Infused Over: 30 mins; Site: left ca1 jugular; 19:28 Follow up: Response: No adverse reaction; IV Status: Completed infusion ca1 19:30 Drug: vancoMYCIN 1 grams Route: IVPB; Infused Over: 2 hrs; Site: left jugular; ca1 Disposition: 02/27/19 18:34 Hospitalization ordered by Ángel Echeverria for Observation. Preliminary diagnosis are Unspecified open wound, left lower leg - and foot, End stage renal disease, Weakness, Hypotension, Altered mental status, unspecified. - Bed requested for Telemetry/MedSurg (observation). - Status is Observation. ca1 - Condition is Fair. - Problem is new. - Symptoms have improved. UTI on Admission? No Signatures: Dispatcher [employer] EDAmaris Upton RN RN aj1 Prudencio Moreno MD MD cha Garcia, Cindy, RN RN Kailey Pineda RN RN ca1 Corrections: (The following items were deleted from the chart) 18:59 18:34 Hospitalization Ordered by Ángel Echeverria MD for Inpatient Admission. Preliminary siena diagnosis is Unspecified open wound, left lower leg - and foot; End stage renal disease; Weakness; Hypotension; Altered mental status, unspecified. Bed requested for Telemetry/MedSurg (Inpatient). Status is Inpatient Admission. Condition is Fair. Problem is new. Symptoms have improved. UTI on Admission? No. siena 19:54 18:59 02/27/2019 18:34 Hospitalization Ordered by Ángel Echeverria MD for Observation. cg Preliminary diagnosis is Unspecified open wound, left lower leg - and foot; End stage renal disease; Weakness; Hypotension; Altered mental status, unspecified. Bed requested for Telemetry/MedSurg (observation). Status is Observation. Condition is Fair. Problem is new. Symptoms have improved. UTI on Admission? No. siena 21:21 19:54 02/27/2019 18:34 Hospitalization Ordered by Ángel Echeverria MD for Observation. ca1 Preliminary diagnosis is Unspecified open wound, left lower leg - and foot; End stage renal disease; Weakness; Hypotension; Altered mental status, unspecified. Bed requested for Telemetry/MedSurg (observation). Status is Observation. Condition is Fair. Problem is new. Symptoms have improved. UTI on Admission? No. cg
[2019-02-27] MEDS ORDERED: NA CHLORIDE 0.9% 250 ML ONE (19:00)
[2019-02-27] MEDS ORDERED: VANCOMYCIN 1 GM/VIAL ONE (19:00)
[2019-02-27] MEDS ORDERED: CEFEPIME 1 GM/100 ML BAG IV ONE (19:01)
[2019-02-27 21:44] LABS: Blood Morphology Comment NOT SEEN (NOT SEEN); Platelet Estimate ADEQ; Urine White Blood Cell Casts OK
[2019-02-27] MEDS ORDERED: ACETAMINOPHEN 500 MG TAB PO PRN (21:49)
[2019-02-27] MEDS ORDERED: ONDANSETRON 4 MG/2 ML VIAL IV PRN (21:49)
[2019-02-27] MEDS ORDERED: FENTANYL CITR 100 MCG/2 ML IV PRN (21:49)
[2019-02-27] MEDS: NA CHLORIDE 0.9% 1,000 ML IV SCH (22:26)
[2019-02-27] MEDS: FAMOTIDINE 20 MG/2 ML VIAL IV SCH (22:26)
[2019-02-28] MEDS ORDERED: NA CHLORIDE 0.9% 250 ML IV PRN ×2 (06:34→06:39)
[2019-02-28] MEDS ORDERED: NA CHLORIDE 0.9% 250 ML ONE (06:36)
--- NOTE | 2019-02-28 06:41 | RAD REPORT ---
EXAM DESCRIPTION: RAD - Chest Single View - 02/28/2019 6:11 am CLINICAL HISTORY: Chest Pain Chest pain. COMPARISON: Chest Single View dated 02/27/2019; Chest Single View dated 11/29/2018; Chest Single View dated 07/29/2018; Chest Single View dated 10/03/2017 FINDINGS: Portable technique limits examination quality. The lungs are grossly clear. The heart is normal in size. No displaced fractures.Tubing projects over the inferior aspect of the cardiac shadow, unchanged. IMPRESSION: No acute intrathoracic process suspected.
[2019-02-28 08:18] LABS: Absolute Lymphocytes (CBC) 0.8 K/uL (0.7-4.9); Basophils % 0.5 % (0-1.3); Hematocrit 28.4 % (39.6-49.0); Lymphocytes % 8.3 % (15.3-44.8); MPV 9.6 fL (7.6-11.3); RBC Red Blood Cell Count 2.96 M/uL (4.33-5.43)
[2019-02-28] MEDS: ASPIRIN EC 81 MG TAB PO SCH (08:18)
[2019-02-28] MEDS: FAMOTIDINE 20 MG/2 ML VIAL IV SCH (08:18)
--- NOTE | 2019-02-28 08:21 | RAD REPORT ---
EXAM DESCRIPTION: RAD - Foot Left 2 View - 02/28/2019 7:46 am CLINICAL HISTORY: foot wound COMPARISON: Foot Left 2 View dated 11/29/2018; Foot Left 3 View dated 08/30/2018 FINDINGS: Soft tissue wound is suspected adjacent to the first metatarsal head medially. Moderate so ft tissue swelling is present along the dorsum of the foot. Lucency is noted along the medial cortex of the first metatarsal head suggesting osteomyelitis.
[2019-02-28] MEDS ORDERED: NA CHLORIDE 0.9% 500 ML IV ONE (09:09)
--- NOTE | 2019-02-28 09:24 | EKG ---
Test Date: 2019-02-27 Test Time: 17:23:53 Radar Repairer: TAM MEASUREMENT RESULTS: Intervals: Rate: 108 HI: 120 QRSD: 88 QT: 330 QTc: 442 [place]: P: 64 HI: 120 QRS: 31 T: 58 INTERPRETIVE STATEMENTS: Sinus tachycardia Otherwise normal ECG Compared to ECG 07/29/2018 12:50:59 Sinus rhythm no longer present Prolonged QT interval no longer present Electronically Signed On 02-28-19 09:23:16 CDT by Genaro Yanez
[2019-02-28] MEDS: KETOROLAC 30 MG/ML INJ IV PRN (09:42)
[2019-02-28] MEDS ORDERED: FENTANYL 75 MCG/PATCH TD ONE (10:24)
[2019-02-28] MEDS ORDERED: FENTANYL CITR 100 MCG/2 ML IV ONE (10:25)
--- NOTE | 2019-02-28 10:31 | P.HP ---
Certification for Inpatient Patient admitted to: Inpatient With expected LOS: >2 Midnights Patient will require the following post-hospital care: None Practitioner: I am a practitioner with admitting privileges, knowledge of patient current condition, hospital course, and medical plan of care. Services: Services provided to patient in accordance with Admission requirements found in Title 42 Section 412.3 of the Code of Federal Regulations Patient History Date of Service: 02/28/19 Primary Care Provider: Juwan Reason for admission: Left foot infection History of Present Illness: Patient is an office patient of [employer]. He has a history of ESRD, PVD, tobacco abuse and chronic wounds on his left legs. Normally see him in the wound care center. He was admitted to [facility] and had a new dialysis catheter placed . His stated that he was having some drainage 2 days ago. The patient went to dialysis. Was found to be hyperkalemic and hypotensive and was sent to the ER. HD nurse also reported some purulent drainage from his catheter. His Hyperkalemia resolved. However he was still hypotensive. Not complaing of pain. He is a bit somnolent Allergies No Known Allergies Allergy (Verified 08/24/16 16:23) Home Medications: Calcium Acetate [Phoslo] 3 cap PO TIDWM 11/29/18 Docusate [Colace Cap] 100 mg PO DAILY 11/29/18 Pregabalin [Lyrica] 50 mg PO TID 11/29/18 levETIRAcetam [Keppra Tab] 500 mg PO DAILY 11/29/18 Calcitrol [Rocaltrol] 0.5 mcg PO DAILY 02/27/19 Collagenase [Santyl Ointment*] 1 andrea TOP DAILY 02/27/19 Hydrocodone/Acetaminophen [Hydrocodone-Acetamin 10-325 mg] 1 tab PO TIDP PRN - Past Medical/Surgical History Has patient received pneumonia vaccine in the past: Yes Diabetic: No -: End stage renal disease -: Hypertension -: PE 03/01/17 found while work up for kidney transplant -: DVT -: Multiple AV grafts to the upper extremity -: Kidney transplant with removal -: arun in groin Psychosocial/ Personal History: The patient is single. He has poor children. - Family History Father -: Heart disease, Hypertension - Social History Smoking Status: Current every day smoker Alcohol use: No CD- Drugs: No Caffeine use: No Place of Residence: Home Review of Systems General: Weakness Musculoskeletal: Foot Pain (left foot pain) Integumentary: Other (chronic left leg ulcers) Physical Examination - Vital Signs Temperature: 97.0 F Blood Pressure: 77/37 Pulse: 95 Respirations: 19 Pulse Ox (%): 94 - Physical Exam General: Alert, In no apparent distress, Mild distress HEENT: Atraumatic, PERRLA, Mucous membr. moist/pink, EOMI, Sclerae nonicteric Neck: Supple, 2+ carotid pulse no bruit, No LAD, Without JVD or thyroid abnormality Respiratory: Clear to auscultation bilaterally, Normal air movement Cardiovascular: Regular rate/rhythm, Normal S1 S2 Gastrointestinal: Normal bowel sounds, No tenderness Musculoskeletal: Swelling (Patient has swelling of the left forefoot.) Integumentary: No rashes, Venous stasis ulcer (which actually look about the same when he was last seen ) Neurological: Normal gait, Normal speech, Normal strength at 5/5 x4 extr, Normal tone, Normal affect Lymphatics: No axilla or inguinal lymphadenopathy - Studies Laboratory Data (last 24 hrs) 02/27/19 17:00: PT 15.1 H, INR 1.29 02/27/19 17:00: WBC 10.0, Hgb 11.8 L, Hct 37.2 L, Plt Count 150 L 02/27/19 17:00: Sodium 136, Potassium 4.2, BUN 61 H, Creatinine 9.83 H*, Glucose 94, Magnesium 2.1, Total Bilirubin 0.5, AST 5 L, ALT 8 L, Alkaline Phosphatase 74, Lipase 83 Microbiology Data (last 24 hrs): 02/27/19 17:30 Blood - Blood Anaerobic Blood Culture - Final Assessment and Plan - Problems (Diagnosis) (1) Osteomyelitis of ankle and foot Current Visit: Yes Status: Acute Plan: Will admit start on antibiotcs. He has a new swelling in the foot. The wound is about the same. However he has had exposed bone for quite some time. His recent surgery could have increased inflamatory factors and worsened blood flow. It would be prudent to treat this as osteomyelitis till proven otherwise (2) ESRD on hemodialysis Current Visit: No Status: Acute Plan: Had a new cather which may be infected. Will discuss with Dr. Gonsalez. (3) Chronic venous hypertension w/ulcer and inflammation involv left side Current Visit: No Status: Chronic Plan: His venous ulcers on the left leg are actually looking good. They still may be the source of infection. (4) Hypertension Onset Date: 03/02/17 Current Visit: No Status: Chronic Plan: Currently hypotensive. Hold the patients bp meds. Qualifiers: Hypertension type: essential hypertension Qualified Code(s): I10 - Essential (primary) hypertension Discharge Plan: Home Plan to discharge in: Greater than 2 days - Advance Directives Does patient have a Living Will: No Does patient have a Durable POA for Healthcare: No - Code Status/Comfort Care Code Status Assessed: No Code Status: Full Code Physician Review: Patient Assessed, Agree with Above Assessment and Plan Critical Care: No Time Spent Managing Pts Care (In Minutes): 55
--- NOTE | 2019-02-28 11:04 | P.PN ---
Subjective Date of Service: 02/28/19 Primary Care Provider: Juwan Chief Complaint: Left foot infection Subjective: No new changes (Pt requesting pain meds. Is eating breakfast till I walked into the room) Review of Systems 10-point ROS is otherwise unremarkable Musculoskeletal: Leg Pain Physical Examination - Vital Signs Temperature: 97.0 F Blood Pressure: 77/37 Pulse: 95 Respirations: 19 Pulse Ox (%): 94 - Physical Exam General: Alert, In no apparent distress HEENT: Atraumatic, PERRLA, EOMI Neck: Supple, JVD not distended Respiratory: Clear to auscultation bilaterally, Normal air movement Cardiovascular: Regular rate/rhythm, Normal S1 S2 Gastrointestinal: Normal bowel sounds, No tenderness Musculoskeletal: No tenderness Integumentary: No rashes Neurological: Normal speech, Normal tone, Normal affect Lymphatics: No axilla or inguinal lymphadenopathy - Studies Laboratory Data (last 24 hrs) 02/27/19 17:00: PT 15.1 H, INR 1.29 02/27/19 17:00: WBC 10.0, Hgb 11.8 L, Hct 37.2 L, Plt Count 150 L 02/27/19 17:00: Sodium 136, Potassium 4.2, BUN 61 H, Creatinine 9.83 H*, Glucose 94, Magnesium 2.1, Total Bilirubin 0.5, AST 5 L, ALT 8 L, Alkaline Phosphatase 74, Lipase 83 Microbiology Data (last 24 hrs): 02/27/19 17:30 Blood - Blood Anaerobic Blood Culture - Final Assessment & Plan - Problems (Diagnosis) (1) Osteomyelitis of ankle and foot Current Visit: Yes Status: Acute Plan: Will admit start on antibiotcs. He has a new swelling in the foot. The wound is about the same. However he has had exposed bone for quite some time. His recent surgery could have increased inflamatory factors and worsened blood flow. It would be prudent to treat this as osteomyelitis till proven otherwise. this mornings xray makes the diagnosis of osteo very likely (2) ESRD on hemodialysis Current Visit: No Status: Acute Plan: Have discussed the patient at length. He is very vasculopathic and HTN. Has had multiple catheters and graft placements. He may have a new infected cather. So the patient is hyperkalemic and needs dialysis. However he is hypotensive and may not tolerate it. Dr. Gonsalez placed him on midadorone and will try a slow dialysis. We may need to transfer back to [facility]. Another issue is the source of the infection(Most likely the foot based on the xray). An amputation may improve the sepsis. However patient has to give consent. Even then he will be a very poor candidate for surgery. Have discussed this with Dr. Garza as well. (3) Chronic venous hypertension w/ulcer and inflammation involv left side Current Visit: No Status: Chronic Plan: His venous ulcers on the left leg are actually looking good. They still may be the source of infection. (4) Hypertension Onset Date: 03/02/17 Current Visit: No Status: Chronic Plan: Currently hypotensive. Hold the patients bp meds. Qualifiers: Hypertension type: essential hypertension Qualified Code(s): I10 - Essential (primary) hypertension Discharge Plan: Home Plan to discharge in: Greater than 2 days - Code Status/Comfort Care Code Status Assessed: No Physician Review: Patient Assessed, Agree with Above Assessment and Plan Critical Care: No Time Spent Managing Pts Care (In Minutes): 35
--- NOTE | 2019-02-28 11:50 | P.CNS ---
Date of Consult: 02/28/19 Reason for Consult: left foot wound Primary Care Provider: Juwan Chief Complaint: Left foot infection History of Present Illness: Patient states that he has had the wound left foot 4-6 months and has had bone exposed at least four months. States that he has taken a 2 week course of iv antibiotics and has been applying santyl with saline moistened gauze to the wound daily. States that he smokes 1/2 pack of cigarettes a day Allergies No Known Allergies Allergy (Verified 08/24/16 16:23) Home Medications: Calcium Acetate [Phoslo] 3 cap PO TIDWM 11/29/18 Docusate [Colace Cap] 100 mg PO DAILY 11/29/18 Pregabalin [Lyrica] 50 mg PO TID 11/29/18 levETIRAcetam [Keppra Tab] 500 mg PO DAILY 11/29/18 Calcitrol [Rocaltrol] 0.5 mcg PO DAILY 02/27/19 Collagenase [Santyl Ointment*] 1 andrea TOP DAILY 02/27/19 Hydrocodone/Acetaminophen [Hydrocodone-Acetamin 10-325 mg] 1 tab PO TIDP PRN - Past Medical/Surgical History Diabetic: No -: End stage renal disease -: Hypertension -: PE 03/01/17 found while work up for kidney transplant -: DVT -: Multiple AV grafts to the upper extremity -: Kidney transplant with removal -: arun in groin Psychosocial/ Personal History: The patient is single. He has poor children. - Family History Father Medical History: Heart disease, Hypertension - Social History Smoking Status: Current every day smoker Counseled patient to stop smoking for: less than 10 minutes Alcohol use: No CD- Drugs: No Caffeine use: No Place of Residence: Home Review of Systems 10-point ROS is otherwise unremarkable Physical Examination Temp Pulse Resp BP Pulse Ox 97.0 F 95 H 19 77/37 L 94 02/28/19 11:03 02/28/19 11:03 02/28/19 11:03 02/28/19 11:03 02/28/19 11:03 General: Alert, In no apparent distress, Oriented x3 Cardiovascular: No edema, Abnormal pulses (thready dorsalis pedis pulse, nonpalpable posterior tibial pulse left foot.) Capillary refill: >2 Seconds Musculoskeletal: No clubbing, No swelling, No contractures, No erythema, No tenderness, No warmth Integumentary: Arterial ulcer (ulceration dorsal aspect of left 1st mpj has rounded, punched out borders with large exposure of the left first metatarsal head and proximal phalanx of the hallux. Serous fluid noted in the 1st mpj, no purulence expressed from the wound. Entire distal aspect of the left forefoot is darkened and cool to the touch with noted absence of hair growth) Neurological: Abnormal sensation Laboratory Data (last 24 hrs) 02/27/19 17:00: PT 15.1 H, INR 1.29 02/27/19 17:00: WBC 10.0, Hgb 11.8 L, Hct 37.2 L, Plt Count 150 L 02/27/19 17:00: Sodium 136, Potassium 4.2, BUN 61 H, Creatinine 9.83 H*, Glucose 94, Magnesium 2.1, Total Bilirubin 0.5, AST 5 L, ALT 8 L, Alkaline Phosphatase 74, Lipase 83 Imagings Data: radiographs left foot reveal radiolucency of left first metatarsal consistent with osteomyelitis - Problems (1) Osteomyelitis of ankle and foot Current Visit: Yes Status: Acute (2) Open wound Current Visit: No Status: Acute Conclusions/Impression: I discussed with the patient and caregiver the options for treating his left foot wound/osteomyelitis as jail iv antibiotics vs. amputation of infected bone. I relayed to them that either option is dependant on adequate vascularity which I feel the patient is lacking. They stated that they have a vascular surgeon, Dr. Saul Kee, at [facility] and that they would like to be transferred for evaluation and treatment by Dr. Kee. I feel that with the patient's best interest in mind it would be best to have the patient transferred to address revascularization and allow for further intervention either iv antibiotics or amputation.
[2019-02-28] MEDS: CA ACETATE 667 MG CAP PO SCH ×2 (12:00→17:00)
[2019-02-28] MEDS ORDERED: ALBUMIN HUMAN 25% 50 ML IV SCH (14:00)
[2019-02-28] MEDS: PREGABALIN 50 MG CAP PO SCH ×2 (14:00→20:02)
[2019-02-28] MEDS: MIDODRINE HCL 5 MG TABLET PO SCH ×2 (14:26→20:02)
[2019-02-28] MEDS ORDERED: MANNITOL 25% 12.5 GM/50 ML VIAL IV PRN (15:46)
[2019-02-28] MEDS ORDERED: ENOXAPARIN 30 MG/0.3 ML SQ SCH (17:00)
--- NOTE | 2019-02-28 17:39 | CON ---
History Of Present Illness: Patient is a 43-year-old male with longstanding history of renal problem s and renal transplant, which was rejected and the patient has been on dialysis for last couple of ye ars. Patient is somnolent. Most of the history was obtained through family and the medical records. Patient is being seen for left leg first metatarsal and phalanx osteomyelitis, as the bone is expos ed at this time. Patient also has a large wound to the left calf and thigh region, which is healing over a period of last 2 years. The patient denies any other complaints, but is somnolent at this josy e. No fevers. No other problems. Past Medical History: Include PE, DVT, multiple AV grafts, kidney transplant with removal of Sagar in groin area, end-stage renal disease, hypertension. Social History: Tobacco, positive. Alcohol, negative. Family History: Noncontributory. Medications: Patient received cefepime in the ER and a dose of vancomycin. Review of Systems: A 10-point review was performed. Allergies: NO KNOWN DRUG ALLERGIES. Physical Examination: General: This is a 43-year-old male, lying in bed, not in any acute cardiopulmonary distress. Vital Signs: Temperature 97, pulse 95, respirations 19, blood pressure 77/37. HEENT: Unremarkable. Neck: Supple. Lungs: Basal crackles. Heart: S1, S2. Regular. Abdomen: Soft, nontender. Bowel sounds present. Extremity: Left leg calf region and foot wounds noted. Laboratory Data: Shows WBC 10,000, hemoglobin 9.4, platelets 122. Chemistry shows sodium 139, potas sium 6, chloride 103, bicarb 22, BUN 73, creatinine 11, glucose is 90, procalcitonin is 1.42. Micro Data: Blood cultures are pending. Assessment And Plan: Hypertensive with exposed bone and large wound to the calf area, also scabs not ed on the small left toe and on the dorsal aspect of the foot. We will recommend to apply Medihoney to the left foot first metatarsal region wound and Betadine to the dorsal aspect in left small toe wo und scab site. Also, apply Xeroform to the calf region wound. We will continue current treatment. We will recommend to continue vancomycin and cefepime while cultures are pending with dialysis. [facility] for further management of wound and possible hyperbaric treatment . NF/MODL Voice ID: [id number] Report ID: [id number]
[2019-02-28] MEDS: NA CHLORIDE 0.9% 1,000 ML IV SCH (17:49)
[2019-02-28] MEDS: PIPER/TAZO/NS 2.25gm 2.25 GM/50 ML BAG IV SCH (18:00)
[2019-02-28] MEDS ORDERED: PIPER/TAZO/NS 3.375gm 3.375 GM/100 ML BAG IVPB SCH (18:00)
[2019-02-28] MEDS ORDERED: VANCOMYCIN 1GM/D5W 1 GM/200 ML BAG IVPB ONE (21:47)
[2019-03-01] MEDS ORDERED: VANCOMYCIN 1 GM/VIAL ONE (00:01)
[2019-03-01] MEDS ORDERED: D5W 250 ML IV ONE (00:05)
[2019-03-01] MEDS: PIPER/TAZO/NS 2.25gm 2.25 GM/50 ML BAG IV SCH ×2 (00:11→10:02)
--- NOTE | 2019-03-01 03:59 | CON ---
Date of Consultation: 02/28/2019 Reason For Consultation: Elevated BUN and creatinine, hyperkalemia, over volume. History Of Present Illness: This is an unfortunate 43-year-old black gentleman, well known to me fro m the dialysis with significant past medical history of secondary hyperparathyroidism; end-stage eddie l disease, on hemodialysis TTS at [facility] through groin access, hyperlipidemia , status post kidney transplant; hypertension, currently hypotension; peripheral vascular disease, os teomyelitis, patient went to the dialysis and the dialysis found to be tachycardiac, but because of t he persistent hyperkalemia, we try to dialyze the patient. Patient received almost 2-1/2 hour of bear lysis. Then after that, his blood pressure continue to be low for that with tachycardia. For that r dave, the patient was transferred to the ER. In the ER, primary workup show hyperkalemia of 6, low blood pressure down, systolic down to the 70. In the dialysis unit, he has yellowish drainage from t he dialysis. Around the dialysis catheter also patient has a dressing on his foot. Past Medical History: Include: 1.Peripheral vascular disease. 2.Hypertension. 3.Hyperlipidemia. 4.End-stage renal disease, on hemodialysis, TTS, status post kidney transplant before with rejection . 5.Peripheral vascular disease. Home Medications: Include PhosLo, docusate, Keppra, calcitriol, and hydrocodone. Family History: Positive for hypertension, coronary artery disease. Social History: Active smoker. Denied alcohol. Denied drug abuse. Review of Systems: Head and neck: No red eye. No ear pain. GI: No nausea, no vomiting. : No polyuria. No dysuria. No hematuria. ELDERLY SITTER: Not applicable. Respiratory: Has shortness of breath. Cardiovascular: No chest tightness. No chest pain. Endocrine: No polydipsia. Skin: No rash. Neuro: Has neuropathy. Musculoskeletal: Leg pain. Physical Examination: Vital Signs: Blood pressure of 77/50, pulse of 88. Chest: Crackles at bilateral base. Heart: S1, S2. Systolic murmur. Abdomen: Soft, nontender. Extremities: PermCath on the groin with clean dressing. Laboratory Data: WBC 10, H and H 9.4/28.4, platelets 122. Sodium 139, potassium of 6, bicarb 22, BU N 73, creatinine of 11, calcium 6.9. Current Medications: Current medication the patient is on include aspirin, Zosyn, Lovenox, Tylenol, Keppra, , pantoprazole. Culture still pending. Assessment And Plan: 1.End-stage renal disease, over volume; hyperkalemia. Unfortunately, low blood pressure. I am belén g to go ahead and give the patient midodrine and we will try to dialyze the patient on low potassium bath and low blood flow with low temperature with sodium module to prevent any hypotension. We will give the patient midodrine 30 minutes before the dialysis and we will monitor. 2.Hypertension, currently hypotension as above. We will use midodrine. 3.Hyperkalemia secondary to renal failure. The patient is going to be dialyzed on 1K bath. 4.Over volume. We will try to challenge the patient on dialysis. 5.Sepsis. The patient is chronically hypotensive. Culture has been sent to the dialysis unit. The patient was started on Zosyn. The dialysis patient received vancomycin. I am going to continue vancomycin and we will continue Zosyn and we will follow up. 6.Secondary hyperparathyroidism. We will continue on PhosLo. RHONDA Voice ID: [id number] Report ID: [id number]
[2019-03-01] MEDS: KETOROLAC 30 MG/ML INJ IV PRN ×2 (04:12→16:16)
[2019-03-01 06:00] VITALS: BMI 32.9
[2019-03-01] MEDS ORDERED: PANTOPRAZOLE 40MG TABLET PO SCH (06:30)
[2019-03-01] MEDS ORDERED: CALCITROL 0.25 MCG CAP PO SCH (09:00)
[2019-03-01] MEDS ORDERED: levETIRAcetam 500 MG TAB PO SCH (09:00)
--- NOTE | 2019-03-01 09:56 | P.PN ---
Subjective Date of Service: 03/01/19 Primary Care Provider: Juwan Chief Complaint: Left foot infection Subjective: No new changes (Had 1 lt removed in dialysis yesterday) Review of Systems 10-point ROS is otherwise unremarkable General: Weakness, Malaise Musculoskeletal: Foot Pain (left) Physical Examination - Vital Signs Temperature: 97.1 F Blood Pressure: 84/41 Pulse: 70 Respirations: 15 Pulse Ox (%): 92 - Physical Exam General: Alert, In no apparent distress HEENT: Atraumatic, PERRLA, EOMI Neck: Supple, JVD not distended Respiratory: Clear to auscultation bilaterally, Normal air movement Cardiovascular: Regular rate/rhythm, Normal S1 S2 Gastrointestinal: Normal bowel sounds, No tenderness Musculoskeletal: No tenderness Integumentary: No rashes Neurological: Normal speech, Normal tone, Normal affect Lymphatics: No axilla or inguinal lymphadenopathy - Studies Microbiology Data (last 24 hrs): 02/27/19 17:30 Blood - Blood Anaerobic Blood Culture - Final Assessment & Plan - Problems (Diagnosis) (1) Osteomyelitis of ankle and foot Current Visit: Yes Status: Acute Plan: Plan to transfer to [facility] for consutation with Dr. Kee his vascular surgeon. The patient most likely has osteomyletis in the foot. If he can be revascularize vs amputation is a question. Dr. Kee would be the best to answer that. Per Dr. Gonsalez he is severly vasculopathic. Has had a number of procedures to get dialysis access. If the infection is not controlled then the hypotension make dialysis very difficult. Will see if we can get him to his vascular surgeon to address this. Poor prognosis. Have spent 20min discuss the prognosis with the patient. He may have to make some difficult decisions soon. Such as amputating the foot. Also the possibility that he may soon not have access for dialysis and he may have to face that (2) ESRD on hemodialysis Current Visit: No Status: Acute Plan: Have discussed the patient at length. He is very vasculopathic and HTN. Has had multiple catheters and graft placements. He may have a new infected cather. So the patient is hyperkalemic and needs dialysis. However he is hypotensive and may not tolerate it. Dr. Gonsalez placed him on midadorone and will try a slow dialysis. We may need to transfer back to [facility]. As discussed above, vascular access is becoming a severe issue. (3) Chronic venous hypertension w/ulcer and inflammation involv left side Current Visit: No Status: Chronic Plan: His venous ulcers on the left leg are actually looking good. They still may be the source of infection. (4) Hypertension Onset Date: 03/02/17 Current Visit: No Status: Chronic Plan: Currently hypotensive. Hold the patients bp meds. Discharge Plan: Transfer Plan to discharge in: 24 Hours - Code Status/Comfort Care Code Status Assessed: No Physician Review: Patient Assessed, Agree with Above Assessment and Plan Critical Care: No Time Spent Managing Pts Care (In Minutes): 30
[2019-03-01] MEDS: PREGABALIN 50 MG CAP PO SCH ×2 (10:01→12:17)
[2019-03-01] MEDS: CA ACETATE 667 MG CAP PO SCH ×2 (10:01→12:17)
[2019-03-01] MEDS: ASPIRIN EC 81 MG TAB PO SCH (10:02)
[2019-03-01] MEDS: MIDODRINE HCL 5 MG TABLET PO SCH (10:03)
[2019-03-01 11:28] LABS: Potassium 5.3 mmol/L (3.5-5.1)
[2019-03-01] MEDS: NA CHLORIDE 0.9% 1,000 ML IV SCH (12:17)
--- NOTE | 2019-03-01 15:04 | P.DS ---
Admission Date: 02/27/19 Discharge Date: 03/01/19 Primary Care Provider: Juwan Disposition: TRANSFER TO [facility] Discharge Condition: SERIOUS Reason for Admission: Left foot infection - Problems (1) Osteomyelitis of ankle and foot Current Visit: Yes Status: Acute (2) ESRD on hemodialysis Current Visit: No Status: Acute (3) Chronic venous hypertension w/ulcer and inflammation involv left side Current Visit: No Status: Chronic (4) Hypertension Onset Date: 03/02/17 Current Visit: No Status: Chronic Qualifiers: Hypertension type: essential hypertension Qualified Code(s): I10 - Essential (primary) hypertension Brief History of Present Illness: Patient is an office patient of [employer] He has a history of ESRD, PVD, tobacco abuse and chronic wounds on his left legs. Normally see him in the wound care center. He was admitted to [facility] and had a new dialysis catheter placed . His stated that he was having some drainage 2 days ago. The patient went to dialysis. Was found to be hyperkalemic and hypotensive and was sent to the ER. HD nurse also reported some purulent drainage from his catheter. His Hyperkalemia resolved. However he was still hypotensive. Not complaing of pain. He is a bit somnolent Hospital Course: Will transfer the patient to [place]. Possible change of cather. Will see if he agrees to amputation. It is unlikely he can get revascularized. There has been attempted in the past. As he most likely has osteomyelitis. Need to remove the source of infection. Had a long discussion with the patient. Vital Signs/Physical Exam: Temp Pulse Resp BP Pulse Ox 97.1 F 78 15 98/51 L 92 03/01/19 12:00 03/01/19 12:00 03/01/19 12:00 03/01/19 12:03/01/19 12:00 General: Alert, In no apparent distress HEENT: Atraumatic, PERRLA, EOMI Neck: Supple, JVD not distended Respiratory: Clear to auscultation bilaterally, Normal air movement Cardiovascular: Regular rate/rhythm, Normal S1 S2 Gastrointestinal: Normal bowel sounds, No tenderness Musculoskeletal: No tenderness Integumentary: No rashes Neurological: Normal speech, Normal tone, Normal affect Lymphatics: No axilla or inguinal lymphadenopathy Laboratory Data at Discharge: WBC 10.0 K/uL (4.3-10.9) 02/28/19 07:43 Hgb 9.4 g/dL (13.6-17.9) L 02/28/19 07:43 Hct 28.4 % (39.6-49.0) L D 02/28/19 07:43 Plt Count 122 K/uL (152-406) L 02/28/19 07:43 PT 15.1 SECONDS (9.5-12.5) H 02/27/19 17:00 INR 1.29 02/27/19 17:00 Sodium 140 mmol/L (136-145) 03/01/19 10:51 Potassium 5.3 mmol/L (3.5-5.1) H 03/01/19 10:51 BUN 51 mg/dL (7-18) H D 03/01/19 10:51 Creatinine 8.18 mg/dL (0.55-1.3) H* D 03/01/19 10:51 Glucose 94 mg/dL (74-106) 03/01/19 10:51 Magnesium 2.1 mg/dL (1.8-2.4) 02/27/19 17:00 Total Bilirubin 0.5 mg/dL (0.2-1.0) 02/27/19 17:00 AST 5 U/L (15-37) L 02/27/19 17:00 ALT 8 U/L (12-78) L 02/27/19 17:00 Alkaline Phosphatase 74 U/L (45-117) 02/27/19 17:00 Troponin I < 0.02 ng/mL (0.0-0.045) 02/28/19 01:31 Lipase 83 U/L (73-393) 02/27/19 17:00 Home Medications: Calcium Acetate [Phoslo] 3 cap PO TIDWM 11/29/18 Docusate [Colace Cap] 100 mg PO DAILY 11/29/18 Pregabalin [Lyrica] 50 mg PO TID 11/29/18 levETIRAcetam [Keppra Tab] 500 mg PO DAILY 11/29/18 Calcitrol [Rocaltrol] 0.5 mcg PO DAILY 02/27/19 Collagenase [Santyl Ointment*] 1 andrea TOP DAILY 02/27/19 Hydrocodone/Acetaminophen [Hydrocodone-Acetamin 10-325 mg] 1 tab PO TIDP PRN Diet: Renal Activity: Ad ileana Physician Review: Patient Assessed, Agree with Above Assessment and Plan Time spent managing pt's care (in minutes): 50
[2019-03-01 16:04] VITALS: O2SAT 92
[2019-03-01 16:17] VITALS: BP 126/65; TEMP 97.4
--- NOTE | 2019-03-02 00:12 | PN ---
Date of Progress Note: 03/01/2019 Subjective: Patient was admitted with sepsis, septic shock, hyperkalemia. Patient was dialyzed yesterday, slow dialysis patient. We managed to remove 1 L. Physical Examination: Vital Signs: Today, blood pressure of 120/65, pulse of 87. Chest: Faint crackles on the base. Heart: S1, S2 systolic murmur. Abdomen: Soft, nontender. Extremities: Left PermCath dressing on the foot. Laboratory Data: WBC 10, H and H 9.4/28.4, platelet 122. Sodium 140, potassium 5.3, bicarb 26, BUN 51, creatinine 8.1, calcium 7.4. Current Medications: The patient on, its include vancomycin, calcitriol, Zosyn. Assessment And Plan: 1. End-stage renal disease, hyperkalemia, status post dialysis yesterday, tolerated the dialysis. We will monitor. 2. Septic shock secondary to foot infection. 3. Osteomyelitis/line infection. Culture suspect Pseudomonas. Continue current antibiotic. We will follow up official reading for the culture. 4. Hypertension, currently hypotension. Continue midodrine. 5. Infected catheter. We will follow up with Vascular. 6. Osteomyelitis as by primary. SADE/ASHLEY Voice ID: [id number] Report ID: [id number] ANTONI
--- NOTE | 2019-03-02 08:44 | EKG ---
Test Date: 2019-02-28 Test Time: 07:28:17 Shop Mechanic Helper: LEONILA MEASUREMENT RESULTS: Intervals: Rate: 89 AK: 128 QRSD: 82 QT: 342 QTc: 416 [place]: P: 70 AK: 128 QRS: 46 T: 61 INTERPRETIVE STATEMENTS: Normal sinus rhythm Low voltage QRS Borderline ECG Compared to ECG 02/27/2019 17:23:53 Low QRS voltage now present Sinus tachycardia no longer present Electronically Signed On 03-02-19 08:41:53 CDT by Genaro Yanez
[2019-03-04 20:15] LABS: HBsAG Nonreactive (Nonreactive)
== END 2019-03-01 17:34 | disposition short-term general hospital (02) | DRG 539 ==
LOC: ER 16:39 → ERHOLD 18:47 → 4TH 20:49
PROVIDERS: ADMIT Internal Medicine; ATTEND Internal Medicine
DX: M86.172 Other acute osteomyelitis, left ankle and foot (principal); N18.6 End stage renal disease; I12.0 Hypertensive chronic kidney disease with stage 5 chronic kidney disease or end stage renal disease; I87.332 Chronic venous hypertension (idiopathic) with ulcer and inflammation of left lower extremity; L97.829 Non-pressure chronic ulcer of other part of left lower leg with unspecified severity; N25.81 Secondary hyperparathyroidism of renal origin; F17.210 Nicotine dependence, cigarettes, uncomplicated; Z99.2 Dependence on renal dialysis; E87.5 Hyperkalemia; I95.9 Hypotension, unspecified
CPT/HCPCS: 36415; 71045; 80048; 80076; 82962; 83605; 83690; 83735; 83880; 84145; 84484; 85025; 85610; 86317; 87040; 87340; 90935; 93005; 96365; 96375; 99285; J0692; J1644; J2150; J2405; J3010; J3370; J7030; J7060; P9047

== ENCOUNTER 2019-03-26 22:29 | Emergency (ER) | payer OTHER ==
--- NOTE | 2019-03-27 00:07 | EDPHYS ---
Physician Documentation [facility] Name: Shawn Devi Age: 43 yrs Sex: Male : 1975 Arrival Date: 03/26/2019 Time: 22:31 Bed 17 Private MD: ED Physician Prudencio Moreno HPI: 03/27 00:00 This 43 yrs old Black Male presents to ER via Wheelchair with complaints of NEW IV LINE siena PUT IN. 00:00 needs left ej. Onset: The symptoms/episode began/occurred 1 day(s) ago. Severity of siena symptoms: At their worst the symptoms were mild in the emergency department the symptoms are unchanged. The patient has experienced similar episodes in the past, several times. Historical: - Allergies: 03/26 22:48 No Known Allergies; ak1 - Home Meds: 22:48 calcitriol 0.5 mcg Oral cap 1 cap once daily [Active]; calcium carbonate 500 mg calcium ak1 (1,250 mg) Oral tab 500 mg four times a day [Active]; Keppra 500 mg Oral tab 1 tab daily [Active]; [place] Oral [Active]; Renvela 800 mg Oral tab 3 tab 3 times per day [Active]; - PMHx: 22:48 Dialysis; DVT- with sx to remove; Hypertension; Renal Disease; mulptiple wounds; ak1 - PSHx: 22:48 grafts; mark in groin for dialysis; daily arm fistulas; kidney transplant failed; skin ak1 grafts/chronic infection; - Immunization history:: Adult Immunizations unknown. - Social history:: Smoking status: Patient uses tobacco products, smokes one-half pack cigarettes per day. - Ebola Screening: : No symptoms or risks identified at this time. - Family history:: not pertinent. ROS: 03/27 00:00 Constitutional: Negative for fever, chills, and weight loss, Eyes: Negative for injury, siena pain, redness, and discharge, ENT: Negative for injury, pain, and discharge, Neck: Negative for injury, pain, and swelling, Cardiovascular: Negative for chest pain, palpitations, and edema, Respiratory: Negative for shortness of breath, cough, wheezing, and pleuritic chest pain, Abdomen/GI: Negative for abdominal pain, nausea, vomiting, diarrhea, and constipation, Back: Negative for injury and pain, : Negative for injury, bleeding, discharge, and swelling, Skin: Negative for injury, rash, and discoloration, Neuro: Negative for headache, weakness, numbness, tingling, and seizure, Psych: Negative for depression, anxiety, suicide ideation, homicidal ideation, and hallucinations, Allergy/Immunology: Negative for hives, rash, and allergies, Endocrine: Negative for neck swelling, polydipsia, polyuria, polyphagia, and marked weight changes, Hematologic/Lymphatic: Negative for swollen nodes, abnormal bleeding, and unusual bruising. MS/extremity: Positive for decreased range of motion, pain, of the right leg. Exam: 00:00 Constitutional: This is a well developed, well nourished patient who is awake, alert, siena and in no acute distress. Head/Face: Normocephalic, atraumatic. Eyes: Pupils equal round and reactive to light, extra-ocular motions intact. Lids and lashes normal. Conjunctiva and sclera are non-icteric and not injected. Cornea within normal limits. Periorbital areas with no swelling, redness, or edema. ENT: Nares patent. No nasal discharge, no septal abnormalities noted. Tympanic membranes are normal and external auditory canals are clear. Oropharynx with no redness, swelling, or masses, exudates, or evidence of obstruction, uvula midline. Mucous membranes moist. Neck: Trachea midline, no thyromegaly or masses palpated, and no cervical lymphadenopathy. Supple, full range of motion without nuchal rigidity, or vertebral point tenderness. No Meningismus. Chest/axilla: Normal chest wall appearance and motion. Nontender with no deformity. No lesions are appreciated. Cardiovascular: Regular rate and rhythm with a normal S1 and S2. No gallops, murmurs, or rubs. Normal PMI, no JVD. No pulse deficits. Respiratory: Lungs have equal breath sounds bilaterally, clear to auscultation and percussion. No rales, rhonchi or wheezes noted. No increased work of breathing, no retractions or nasal flaring. Abdomen/GI: Soft, non-tender, with normal bowel sounds. No distension or tympany. No guarding or rebound. No evidence of tenderness throughout. Back: No spinal tenderness. No costovertebral tenderness. Full range of motion. Male : Normal genitalia with no discharge or lesions. Skin: Warm, dry with normal turgor. Normal color with no rashes, no lesions, and no evidence of cellulitis. Neuro: Awake and alert, GCS 15, oriented to person, place, time, and situation. Cranial nerves II-XII grossly intact. Motor strength 5/5 in all extremities. Sensory grossly intact. Cerebellar exam normal. Normal gait. Psych: Awake, alert, with orientation to person, place and time. Behavior, mood, and affect are within normal limits. 00:00 Musculoskeletal/extremity: ROM: limited active range of motion, limited passive range of motion, in the right leg, Circulation is intact in all extremities. Sensation intact. Compartment Syndrome exam of affected extremity: is normal. Weight bearing: able to fully bear weight, DVT Exam: no pain, no swelling, no tenderness, negative Homans' sign noted on exam, no appreciated bluish discoloration, no erythema, no increased warmth. Vital Signs: 03/26 22:46 BP 88 / 34; Pulse 97; Resp 18; Temp 97; Pulse Ox 97% on R/A; Weight 79.83 kg (R); ak1 Height 5 ft. 7 in. (170.18 cm) (R); Pain 0/10; 03/27 00:14 BP 90 / 42 LL; Pulse 73; Resp 18; Pulse Ox 99% on R/A; lp1 03/26 22:46 Body Mass Index 27.57 (79.83 kg, 170.18 cm) ak1 00:14 Provider notified; no further interventions needed lp1 Procedures: 00:05 Peripheral line: by aseptic technique a peripheral line was placed in the right [facility] external jugular vein. MDM: 03/26 23:04 Patient medically screened. [facility] 03/27 00:05 Data reviewed: vital signs, nurses notes. [facility] 03/27 00:00 Order name: Blood Pressure Recheck; Complete Time: 00:02 [facility] Administered Medications: No medications were administered Disposition: 03/27/19 00:06 Discharged to Home. Impression: Weakness, End stage renal disease - on HD. - Condition is Stable. - Discharge Instructions: Weakness, Dialysis, Weakness, [id number], Dialysis Diet, [id number]. - Medication Reconciliation Form, Thank You Letter, Antibiotic Education, Prescription Opioid Use form. - Follow up: Private Physician; When: 2 - 3 days; Reason: Recheck today's complaints, Continuance of care, Re-evaluation by your physician. - Problem is new. - Symptoms have improved. Signatures: Prudencio Moreno MD MD cha Pena, Laura, RN RN lp1 Monisha Tomlinson RN RN ak1 Corrections: (The following items were deleted from the chart) 00:14 00:06 03/27/2019 00:06 Discharged to Home. Impression: Weakness; End stage renal lp1 disease - on HD. Condition is Stable. Forms are Medication Reconciliation Form, Thank You Letter, Antibiotic Education, Prescription Opioid Use. Follow up: Private Physician; When: 2 - 3 days; Reason: Recheck today's complaints, Continuance of care, Re-evaluation by your physician. Problem is new. Symptoms have improved. siena
--- NOTE | 2019-03-27 00:07 | ER ---
Nurse's Notes [facility] Name: Shawn Devi Age: 43 yrs Sex: Male : 1975 Arrival Date: 03/26/2019 Time: 22:31 Bed 17 Private MD: Diagnosis: Weakness;End stage renal disease-on HD Presentation: 03/26 22:46 Presenting complaint: Patient states: he need a new "EJ" placed for home IV ak1 antibiotics. Transition of care: patient was not received from another setting of care. Onset of symptoms is unknown. Risk Assessment: Do you want to hurt yourself or someone else? Patient reports no desire to harm self or others. Initial Sepsis Screen: Does the patient meet any 2 criteria? No. Patient's initial sepsis screen is negative. Does the patient have a suspected source of infection? No. Patient's initial sepsis screen is negative. Care prior to arrival: None. 22:46 Method Of Arrival: Wheelchair ak1 22:46 Acuity: REGINA 4 ak1 Historical: - Allergies: 22:48 No Known Allergies; ak1 - Home Meds: 22:48 calcitriol 0.5 mcg Oral cap 1 cap once daily [Active]; calcium carbonate 500 mg calcium ak1 (1,250 mg) Oral tab 500 mg four times a day [Active]; Keppra 500 mg Oral tab 1 tab daily [Active]; [place] Oral [Active]; Renvela 800 mg Oral tab 3 tab 3 times per day [Active]; - PMHx: 22:48 Dialysis; DVT- with sx to remove; Hypertension; Renal Disease; mulptiple wounds; ak1 - PSHx: 22:48 grafts; mark in groin for dialysis; daily arm fistulas; kidney transplant failed; skin ak1 grafts/chronic infection; - Immunization history:: Adult Immunizations unknown. - Social history:: Smoking status: Patient uses tobacco products, smokes one-half pack cigarettes per day. - Ebola Screening: : No symptoms or risks identified at this time. - Family history:: not pertinent. Screenin/22 00:02 Abuse screen: Denies threats or abuse. Denies injuries from another. Nutritional lp1 screening: No deficits noted. Tuberculosis screening: No symptoms or risk factors identified. Fall Risk None identified. Assessment: 00:02 General: Appears in no apparent distress. Behavior is calm, cooperative, appropriate lp1 for age. Pain: Denies pain. Neuro: No deficits noted. Cardiovascular: No deficits noted. Respiratory: No deficits noted. GI: No deficits noted. : No deficits noted. EENT: No deficits noted. Derm: Skin is intact, Skin is dry, Skin is normal. Musculoskeletal: No deficits noted. 00:04 Reassessment: Dr. Moreno discussed follow-up with patient and family for more lp1 permanent peripheral IV access. Vital Signs: 03/26 22:46 BP 88 / 34; Pulse 97; Resp 18; Temp 97; Pulse Ox 97% on R/A; Weight 79.83 kg (R); ak1 Height 5 ft. 7 in. (170.18 cm) (R); Pain 0/10; 03/27 00:14 BP 90 / 42 LL; Pulse 73; Resp 18; Pulse Ox 99% on R/A; lp1 03/26 22:46 Body Mass Index 27.57 (79.83 kg, 170.18 cm) ak1 00:14 Provider notified; no further interventions needed lp1 ED Course: 03/26 22:31 Patient arrived in ED. cf2 22:47 Triage completed. ak1 22:48 Sara Cantrell, RN is Primary Nurse. lp1 22:48 Arm band placed on Patient placed in an exam room, on a stretcher, Patient notified of ak1 wait time. 23:04 Prudencio Moreno MD is Attending Physician. [facility] 03/27 00:02 Inserted saline lock: 18 gauge in right EJ, using aseptic technique. By Dr. Moreno. lp1 18g IV to left EJ removed. 00:03 Patient has correct armband on for positive identification. lp1 00:03 No provider procedures requiring assistance completed. lp1 Administered Medications: No medications were administered Outcome: 00:06 Discharge ordered by . [facility] 00:13 Discharged to home via wheelchair, with family. lp1 00:13 Condition: good 00:13 Discharge instructions given to patient, Instructed on discharge instructions, follow up and referral plans. Demonstrated understanding of instructions, follow-up care. 00:14 Patient left the ED. lp1 Signatures: Prudencio Moreno MD MD cha Pena, Laura, RN RN lp1 Monisha Tomlinson RN RN ak1 [place], [place] cf2
[2019-03-27 00:48] VITALS: TEMP 97
[2019-03-27 00:49] VITALS: BP 90/42; O2SAT 99
== END 2019-03-27 00:14 | disposition home or self-care (01) ==
LOC: ER 22:29
PROC: 05HP33Z Insertion of Infusion Device into Right External Jugular Vein, Percutaneous Approach (ICD-10-PCS; principal; 2019-03-27)
DX: I12.0 Hypertensive chronic kidney disease with stage 5 chronic kidney disease or end stage renal disease (principal); N18.6 End stage renal disease; Z99.2 Dependence on renal dialysis; Z94.0 Kidney transplant status; F17.210 Nicotine dependence, cigarettes, uncomplicated
CPT/HCPCS: 99283